=== PATIENT | male | born 1955 | race Caucasian/White ===

== ENCOUNTER 2016-07-05 18:59 | Emergency (ER) | payer OTHER ==
[~2016-07-05] VITALS: Ht 182.9 cm; Wt 125.9 kg
[~2016-07-05 18:59] MED LIST: ALPR0.25 PO; AMLO5TAB2 PO; APIX2.5T PO; ATOR40TA16 PO; CARV12.5 PO; CYCL5TAB PO; FURO1TAB60 PO; GABA300C5 PO; HYDR-3583 PO; HYDR50TA15 PO; LEVEMIR SQ; LISI-515 PO; MORP1TAB24 PO; NOVORP2 SQ; OMEP40CA2 PO
[2016-07-05 19:34] VITALS: PULSE 74; RESP 20; TEMP 98.4; O2SAT 95
[2016-07-05] MEDS ORDERED: SODIUM CHLORIDE 0.9% FLUSH 5 ML FLUSH IVF PRN (20:00)
--- NOTE | 2016-07-05 20:02 | PD ---
HPI . Lesion on his right foot Chief Complaint: Skin Problem Time Seen by Provider: 19:47 Travel History International Travel<30 days: No Contact w/Intl Traveler<30days: No Traveled to known affect area: No History of Present Illness HPI Patient presents with a blister on his right foot which burst today. He states that he just noticed it today. He states he feels like he swollen all over. It started yesterday. He is also complaining with some shortness of breath. He denies chest pain. He has not had any fever. No nausea or vomiting. PFSH Past Medical History Hx Anticoagulant Therapy: Yes Arthritis: Yes Asthma: No Autoimmune Disease: No Anxiety: Yes Depression: No Heart Rhythm Problems: No Cancer: No Cardiovascular Problems: Yes (CAD) High Cholesterol: Yes Chemotherapy: No Chest Pain: Yes Congestive Heart Failure: No COPD: No Cerebrovascular Accident: Yes Diabetes: Yes Diminished Hearing: No Endocrine: Yes Gastrointestinal Disorders: Yes GERD: Yes Genitourinary: Yes Headaches: Yes Hiatal Hernia: Yes Hypertension: Yes Immune Disorder: No Implanted Vascular Access Dvce: No Kidney Stones: No Musculoskeletal: Yes Neurologic: Yes Psychiatric: Yes Reproductive: No Respiratory: Yes Immunizations Current: Yes Migraines: Yes Myocardial Infarction: Yes Radiation Therapy: No Renal Failure: No Seizures: No Sickle Cell Disease: No Sleep Apnea: Yes Thyroid Disease: No Triglycerides - High: Yes Ulcer: No Past Surgical History Abdominal Surgery: No AICD: No Arteriovenous Shunt: No Cardiac Surgery: No Ear Surgery: No Endocrine Surgery: No Eye Surgery: No Genitourinary Surgery: No Gynecologic Surgery: No Hysterectomy: No Insulin Pump: No Joint Replacement: No Neurologic Surgery: No Oral Surgery: No Pacemaker: No Thoracic Surgery: No Other Surgery: Yes Social History Alcohol Use: Yes (wine occ) Tobacco Use: No (second hand smoke from caregiver) Substance Use: No Allergies-Medications (Allergen,Severity, Reaction): Coded Allergies: Penicillin (Verified Allergy, Severe, Hives, SOB, 07/05/16) *MDRO Multi-Drug Resistant Organism (Verified Adverse Reaction, Severe, 07/05/16) 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 Reported Meds & Prescriptions Reported Meds & Active Scripts Active Hydrocodone-Acetaminophen 10-325 mg Tab 1 Tab PO Q6H PRN Flexeril (Cyclobenzaprine HCl) 5 Mg Tab 5 Mg PO TID PRN Alprazolam 0.25 Mg Tab 0.25 Mg PO BID PRN Morphine ER (Morphine Sulfate) 15 Mg Tab 15 Mg PO BID Gabapentin 300 Mg Cap 300 Mg PO TID Reported Omeprazole 40 Mg Cap 40 Mg PO DAILY Eliquis (Apixaban) 2.5 Mg Tab 2.5 Mg PO BID Novolin R Inj (Insulin Human Regular) 1,000 Unit/10 Ml Vial 1-9 Units SQ ACHS Max dose at bedtime:( )units; sugars less than 70,(0) units; sugars 200-249,(3 )unit; sugars 250-299,(5)units; sugars 300-349,(7) units; sugars greater than 349,(9)units Levemir Inj (Insulin Detemir) 1,000 unit/ 10 ML Vial 62 Units SQ Q12HR Do not mix with any other Insulin. Atorvastatin (Atorvastatin Calcium) 40 Mg Tab 40 Mg PO HS Lasix (Furosemide) 40 Mg Tab 40 Mg PO BID PRN Hydralazine (Hydralazine HCl) 50 Mg Tab 50 Mg PO TID Take with a meal Coreg (Carvedilol) 12.5 Mg Tab 12.5 Mg PO Q12HR Lisinopril 20 Mg Tab 20 Mg PO Q12HR Amlodipine (Amlodipine Besylate) 5 Mg Tab 5 Mg PO DAILY Review of Systems Except as stated in HPI: all other systems reviewed are Neg General / Constitutional: No: Fever, Chills Cardiovascular: Positive: Edema Respiratory: Positive: Shortness of Breath Gastrointestinal: No: Nausea, Vomiting, Diarrhea Genitourinary: Positive: Decreased Urinary Output Skin: Positive Other (blister on his right foot) Psychiatric: Positive: Anxiety Endocrine: Positive: Other (elevated blood sugar), No: Polyuria, Polydipsia Physical Exam Narrative GENERAL: Patient is talking nonstop. He is very anxious about possibly having to have his right lower extremity amputated. SKIN: Warm and dry. He has a ruptured blister on the dorsal aspect of the right foot. HEAD: Atraumatic. Normocephalic. EYES: Pupils equal and round. ENT: No nasal bleeding or discharge. Mucous membranes pink and moist. NECK: Trachea midline. CARDIOVASCULAR: Regular rate and rhythm. Heart sounds are normal. RESPIRATORY: No accessory muscle use. Lungs are clear. GASTROINTESTINAL: Abdomen soft, non-tender, nondistended. He doesn't appear to have any abdominal wall edema. MUSCULOSKELETAL: No obvious deformities. 4+ pretibial pitting edema. NEUROLOGICAL: Awake and alert. No obvious cranial nerve deficits. Motor grossly within normal limits. Normal speech. PSYCHIATRIC: Appropriate mood and affect; insight and judgment normal. Data Data Last Documented VS Vital Signs Date Time Temp Pulse Resp B/P Pulse Ox O2 Delivery O2 Flow Rate FiO2 07/05/16 21:30 85 16 168/71 98 Nasal Cannula 2 07/05/16 19:34 98.4 Orders Complete Blood Count With Diff (07/05/16 19:51) Comprehensive Metabolic Panel (07/05/16 19:51) B-Type Natriuretic Peptide (07/05/16 19:51) Prothrombin Time / Inr (Pt) (07/05/16 19:51) Ckmb (Isoenzyme) Profile (07/05/16 19:51) Troponin I (07/05/16 19:51) Iv Access Insert/Monitor (07/05/16 19:51) Electrocardiogram (07/05/16 19:51) Ecg Monitoring (07/05/16 19:51) Oximetry (07/05/16 19:51) Chest, Single Ap (07/05/16 19:51) Sodium Chloride 0.9% Flush (Ns Flush) (07/05/16 20:00) Furosemide Inj (Lasix Inj) (07/05/16 21:45) CKMB (07/05/16 20:30) CKMB% (07/05/16 20:30) Labs Laboratory Tests Test 07/05/16 20:30 White Blood Count 9.7 TH/MM3 Red Blood Count 4.37 MIL/MM3 Hemoglobin 12.8 GM/DL Hematocrit 37.8 % Mean Corpuscular Volume 86.4 FL Mean Corpuscular Hemoglobin 29.2 PG Mean Corpuscular Hemoglobin 33.8 % Concent Red Cell Distribution Width 13.2 % Platelet Count 353 TH/MM3 Mean Platelet Volume 7.5 FL Neutrophils (%) (Auto) 72.3 % Lymphocytes (%) (Auto) 14.9 % Monocytes (%) (Auto) 6.5 % Eosinophils (%) (Auto) 3.7 % Basophils (%) (Auto) 2.6 % Neutrophils # (Auto) 6.9 TH/MM3 Lymphocytes # (Auto) 1.5 TH/MM3 Monocytes # (Auto) 0.6 TH/MM3 Eosinophils # (Auto) 0.4 TH/MM3 Basophils # (Auto) 0.3 TH/MM3 CBC Comment DIFF FINAL Differential Comment Prothrombin Time 10.0 SEC Prothromb Time International 0.9 RATIO Ratio Sodium Level 137 MEQ/L Potassium Level 4.5 MEQ/L Chloride Level 103 MEQ/L Carbon Dioxide Level 24.4 MEQ/L Anion Gap 10 MEQ/L Blood Urea Nitrogen 45 MG/DL Creatinine 1.80 MG/DL Estimat Glomerular Filtration 39 ML/MIN Rate Random Glucose 302 MG/DL Calcium Level 8.5 MG/DL Total Bilirubin 0.3 MG/DL Aspartate Amino Transf 21 U/L (AST/SGOT) Alanine Aminotransferase 24 U/L (ALT/SGPT) Alkaline Phosphatase 83 U/L Total Creatine Kinase 119 U/L Creatine Kinase MB 1.3 NG/ML Troponin I LESS THAN 0.02 NG/ML B-Type Natriuretic Peptide 37 PG/ML Total Protein 7.2 GM/DL Albumin 3.1 GM/DL MDM Medical Decision Making Medical Screen Exam Complete: Yes Emergency Medical Condition: Yes Interpretation(s) EKG shows a normal sinus rhythm with no ST segment elevation or depression. Differential Diagnosis Differential diagnosis of his foot blister includes but is not limited to CHF, cellulitis, osteomyelitis Narrative Course Patient presents for evaluation of a blister on his foot. He is concerned that he will have to have his foot amputated. He also reports diffuse swelling, shortness of breath and elevated blood sugars. 9:36 PM CBC has a white count of 9.7. H&H is 12.8 and 37.8. His BNP is 37. Many of his chemistries will be delayed because our analyzer is down. Chest x-ray is negative to the radiologist's interpretation. Chest x-ray was independently viewed by me. 10:04 PM The rest of his labs are back. Troponin is negative. CK-MB is negative. He has no evidence of acute exacerbation of CHF. He has no evidence of infection. He is stable for discharge to home. Diagnosis Primary Impression: Peripheral edema Additional Instructions: Increased your Lasix to 80 mg twice a day for the next 5 days. See your doctor later in the week for recheck. Wash your foot twice a day with soap and water and apply Neosporin ointment. Med/Other Pt SpecificInfo: Prescription(s) given Scripts Furosemide (Lasix)80 Mg Tab80 Mg PO BID 5 Days Ref 0 Prov:Amanda Valiente MD 07/05/16 Disposition: 01 DISCHARGE HOME Condition: Stable Amanda Valiente MD Jul 05, 2016 20:01
--- NOTE | 2016-07-05 20:27 | RADHPO ---
EXAM DATE/TIME: 07/05/2016 20:06 [facility] COMPARISON: CHEST SINGLE AP, June 04, 2016, 15:32. INDICATIONS : Short of breath MEDICAL HISTORY : Hypertension. Diabetes mellitus type II. Stroke. SURGICAL HISTORY : Left foot amputation ENCOUNTER: Initial ACUITY: 1 day PAIN SCORE: Non-responsive. LOCATION: Bilateral chest FINDINGS: A single view of the chest demonstrates the lungs to be symmetrically aerated without evidence of mas s, infiltrate or effusion. The cardiomediastinal contours are unremarkable. Osseous structures are intact. CONCLUSION: No evidence of acute cardiopulmonary disease. Josep Ward MD on July 05, 2016 at 20:25 Board Certified Radiologist. This report was verified electronically.
[2016-07-05 20:41] LABS: AUTOMATED NEUTROPHIL # 6.9 TH/MM3 (1.8-7.7); BASOPHIL # 0.3 TH/MM3 (0-0.2); BASOPHIL % 2.6 % (0.0-2.0); EOSINOPHIL # 0.4 TH/MM3 (0-0.4); EOSINOPHIL % 3.7 % (0.0-4.0); HEMATOCRIT 37.8 % (39.0-51.0); HEMO FLAGS DIFF FINAL; LYMPH % 14.9 % (9.0-44.0); LYMPHOCYTE # 1.5 TH/MM3 (1.0-4.8); MEAN CELL VOLUME 86.4 FL (80.0-100.0); MEAN CORPUSCULAR HEMOGLOBIN 29.2 PG (27.0-34.0); MEAN CORPUSCULAR HGB CONC 33.8 % (32.0-36.0); MONO % 6.5 % (0.0-8.0); NEUT % 72.3 % (16.0-70.0); PLATELET COUNT 353 TH/MM3 (150-450); RED BLOOD COUNT 4.37 MIL/MM3 (4.50-5.90); RED CELL DISTRIBUTION WIDTH 13.2 % (11.6-17.2); WHITE BLOOD COUNT 9.7 TH/MM3 (4.0-11.0)
[2016-07-05 20:50] LABS: BLOOD UREA NITROGEN 45 MG/DL (7-18); GLOMERULAR FILTRATION RATE 39 ML/MIN (>89); SODIUM (NA) 137 MEQ/L (136-145)
[2016-07-05 20:51] LABS: CHLORIDE 103 MEQ/L (98-107); POTASSIUM 4.5 MEQ/L (3.5-5.1)
[2016-07-05 20:52] LABS: INTERNATIONAL NORMALIZED RATIO 0.9 RATIO
[2016-07-05 21:30] VITALS: BP 168/71; PULSE 85; RESP 16; O2SAT 98
[2016-07-05 21:41] LABS: ALKALINE PHOSPHATASE 83 U/L (45-117); ALT (GPT) 24 U/L (12-78); ANION GAP 10 MEQ/L (5-15); AST (GOT) 21 U/L (15-37); BICARBONATE 24.4 MEQ/L (21.0-32.0); CREATINE KINASE 119 U/L (39-308); TOTAL BILIRUBIN ADULT 0.3 MG/DL (0.2-1.0)
[2016-07-05] MEDS ORDERED: FUROSEMIDE 100 MG/10 ML VIAL IV PUSH ONE (21:45)
[2016-07-05 21:54] LABS: CKMB 1.3 NG/ML (0.5-3.6)
[2016-07-05] MEDS ORDERED: FURO1TAB61 PO (22:07)
[2016-07-05 23:08] VITALS: BP 172/68
--- NOTE | 2016-07-06 23:51 | EKG ---
Date Performed: 07/05/2016 Time Performed: 20:16:40 PTAGE: 61 years EKG: Sinus rhythm Normal ECG PREVIOUS TRACING : 06/04/2016 14.58 DOCTOR: Eduardo Acosta Interpretating Date/Time 07/06/2016 23:45:21
[2016-07-16] MEDS ORDERED: HYDR-3583 PO (14:57)
[2016-07-16] MEDS ORDERED: ALPR0.25 PO (14:57)
[2016-07-16] MEDS ORDERED: MORP1TAB24 PO (14:57)
[2016-07-16] MEDS ORDERED: CYCL5TAB PO (14:57)
[2016-08-23] MEDS ORDERED: MORP1TAB24 PO (10:15)
[2016-08-23] MEDS ORDERED: ALPR0.25 PO (10:16)
[2016-08-23] MEDS ORDERED: GABA300C5 PO (10:16)
[2016-08-23] MEDS ORDERED: HYDR-3583 PO (10:16)
[2016-08-23] MEDS ORDERED: CYCL5TAB PO (10:22)
[2016-08-26] MEDS ORDERED: MUPI2OIN TOPICAL (12:55)
[2016-08-26] MEDS ORDERED: RANI150T PO (15:49)
[2016-08-26] MEDS ORDERED: LEVEMIR SQ (15:55)
[2016-08-30] MEDS ORDERED: AMLO5TAB2 PO (09:09)
[2016-08-30] MEDS ORDERED: ALBUAER3 INH (09:09)
[2016-09-09] MEDS ORDERED: LEVEMIR SQ (14:05)
[2016-09-09] MEDS ORDERED: OMEP20TA PO (14:06)
[2016-09-09] MEDS ORDERED: INSU-170 (14:25)
[2016-09-17] MEDS ORDERED: APIX2.5T PO (13:46)
[2016-09-20] MEDS ORDERED: APIX2.5T PO (13:33)
[2016-09-27] MEDS ORDERED: NOVORP2 SQ (13:14)
[2016-10-07] MEDS ORDERED: OMEP20TA PO (14:10)
[2016-10-08] MEDS ORDERED: MORP1TAB24 PO (15:14)
[2016-10-08] MEDS ORDERED: ALPR0.25 PO (15:14)
[2016-10-08] MEDS ORDERED: HYDR-3583 PO (15:14)
[2016-10-08] MEDS ORDERED: CYCL5TAB PO (15:15)
[2016-10-18] MEDS ORDERED: LIPI40TA PO (14:47)
[2016-10-28] MEDS ORDERED: ALBUAER3 INH (15:17)
[2016-11-01] MEDS ORDERED: NOVORP2 SQ (12:42)
[2016-11-02] MEDS ORDERED: GLUC1TES75 (15:17)
[2016-11-03] MEDS ORDERED: GLUC1TES75 (10:43)
[2016-11-04] MEDS ORDERED: CARV12.5 PO (16:54)
[2016-11-05] MEDS ORDERED: ALPR0.25 PO (10:40)
[2016-11-05] MEDS ORDERED: MORP1TAB24 PO (10:40)
[2016-11-05] MEDS ORDERED: HYDR-3583 PO (10:40)
[2016-11-19] MEDS ORDERED: LEVEMIR SQ (14:01)
[2016-11-26] MEDS ORDERED: NOVORP2 SQ (14:48)
[2016-11-26] MEDS ORDERED: LIPI40TA PO (14:50)
[2016-12-10] MEDS ORDERED: HYDR-3583 PO (15:00)
[2016-12-10] MEDS ORDERED: MORP1TAB24 PO (15:00)
[2016-12-10] MEDS ORDERED: ALPR0.25 PO (15:00)
== END 2016-07-05 23:18 | disposition home or self-care (01) ==
LOC: PHED 18:59
DX: R60.0 Localized edema (principal); R06.02 Shortness of breath
CPT/HCPCS: 71010; 80053; 82550; 82552; 83880; 84484; 85025; 85610; 93005; 96374; 99284; J1940

== ENCOUNTER 2016-07-30 14:00 | Emergency (ER) | payer OTHER ==
[~2016-07-30] VITALS: Ht 177.8 cm; Wt 109.0 kg
[~2016-07-30 14:00] MED LIST changes: +FURO1TAB61 PO
[2016-07-30 14:19] VITALS: BP 151/84; PULSE 67; RESP 17; TEMP 98.6; O2SAT 96
[2016-07-30] MEDS ORDERED: ACETAMINOPHEN/HYDROcodone 325 MG/5 MG TAB PO ONE (15:30)
[2016-07-30] MEDS ORDERED: cloNIDine HCL 0.2 MG TAB PO ONE (15:30)
--- NOTE | 2016-07-30 15:32 | PD ---
HPI Chief Complaint: Hypertension Time Seen by Provider: 15:13 Travel History International Travel<30 days: No Contact w/Intl Traveler<30days: No Traveled to known affect area: No History of Present Illness HPI This patient went to physical therapy and they checked his blood pressure and it was 190s systolic and they sent him to the emergency room and wouldn't do therapy with that blood pressure. Pressure is currently in the 180s systolic. He complains of posterior headache. No head injury or fever. No thunderclap onset. He does take blood thinner. Symptoms severity is moderate. No alleviating factors. Duration one day PFSH Past Medical History Hx Anticoagulant Therapy: Yes Arthritis: Yes Asthma: No Autoimmune Disease: No Anxiety: Yes Depression: No Heart Rhythm Problems: No Cancer: No Cardiovascular Problems: Yes (CAD) High Cholesterol: Yes Chemotherapy: No Chest Pain: Yes Congestive Heart Failure: No COPD: No Cerebrovascular Accident: Yes Diabetes: Yes Patient Takes Glucophage: No Diminished Hearing: No Endocrine: Yes Gastrointestinal Disorders: Yes GERD: Yes Genitourinary: Yes Headaches: Yes Hiatal Hernia: Yes Heparin Induced Thrombocytopen: No Hypertension: Yes Immune Disorder: No Implanted Vascular Access Dvce: No Kidney Stones: No Musculoskeletal: Yes Neurologic: Yes Psychiatric: Yes Reproductive: No Respiratory: Yes Immunizations Current: Yes Migraines: Yes Myocardial Infarction: Yes Radiation Therapy: No Renal Failure: No Seizures: No Sickle Cell Disease: No Sleep Apnea: Yes Thyroid Disease: No Triglycerides - High: Yes Ulcer: No Past Surgical History Abdominal Surgery: No AICD: No Arteriovenous Shunt: No Cardiac Surgery: No Ear Surgery: No Endocrine Surgery: No Eye Surgery: No Genitourinary Surgery: No Gynecologic Surgery: No Hysterectomy: No Insulin Pump: No Joint Replacement: No Neurologic Surgery: No Oral Surgery: No Pacemaker: No Thoracic Surgery: No Other Surgery: Yes (Orthopedic) Social History Alcohol Use: Yes (wine occ) Tobacco Use: No (second hand smoke from caregiver) Substance Use: No Allergies-Medications (Allergen,Severity, Reaction): Coded Allergies: Penicillin (Verified Allergy, Severe, Hives, SOB, 07/30/16) *MDRO Multi-Drug Resistant Organism (Verified Adverse Reaction, Severe, ) 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 Reported Meds & Prescriptions Reported Meds & Active Scripts Active Hydrocodone-Acetaminophen 10-325 mg Tab 1 Tab PO Q6H PRN Flexeril (Cyclobenzaprine HCl) 5 Mg Tab 5 Mg PO TID PRN Alprazolam 0.25 Mg Tab 0.25 Mg PO BID PRN Morphine ER (Morphine Sulfate) 15 Mg Tab 15 Mg PO BID Gabapentin 300 Mg Cap 300 Mg PO TID Reported Omeprazole 40 Mg Cap 40 Mg PO DAILY Eliquis (Apixaban) 2.5 Mg Tab 2.5 Mg PO BID Novolin R Inj (Insulin Human Regular) 1,000 Unit/10 Ml Vial 1-9 Units SQ ACHS Max dose at bedtime:( )units; sugars less than 70,(0) units; sugars 200-249,(3 )unit; sugars 250-299,(5)units; sugars 300-349,(7) units; sugars greater than 349,(9)units Levemir Inj (Insulin Detemir) 1,000 unit/ 10 ML Vial 62 Units SQ Q12HR Do not mix with any other Insulin. Atorvastatin (Atorvastatin Calcium) 40 Mg Tab 40 Mg PO HS Lasix (Furosemide) 40 Mg Tab 40 Mg PO BID PRN Hydralazine (Hydralazine HCl) 50 Mg Tab 50 Mg PO TID Take with a meal Coreg (Carvedilol) 12.5 Mg Tab 12.5 Mg PO Q12HR Lisinopril 20 Mg Tab 20 Mg PO Q12HR Amlodipine (Amlodipine Besylate) 5 Mg Tab 5 Mg PO DAILY Review of Systems General / Constitutional: No: Fever Eyes: No: Visual changes HENT: Positive: Headaches Cardiovascular: No: Chest Pain or Discomfort Respiratory: No: Shortness of Breath Gastrointestinal: No: Abdominal Pain Genitourinary: No: Dysuria Musculoskeletal: No: Pain Skin: No Rash Neurologic: Positive: Headache, No: Weakness Psychiatric: No: Depression Endocrine: No: Polydipsia Hematologic/Lymphatic: No: Easy Bruising Physical Exam Narrative GENERAL: Well-nourished, well-developed patient in no apparent distress. SKIN: Warm and dry. HEAD: Atraumatic. Normocephalic. EYES: Pupils equal and round. No scleral icterus. No injection or drainage. ENT: No nasal bleeding or discharge. Mucous membranes pink and moist. NECK: Trachea midline. No JVD. No meningeal signs CARDIOVASCULAR: Regular rate and rhythm. No murmur appreciated. RESPIRATORY: No accessory muscle use. Clear to auscultation. Breath sounds equal bilaterally. GASTROINTESTINAL: Abdomen soft, non-tender, nondistended. Hepatic and splenic margins not palpable. MUSCULOSKELETAL: Has had amputation of his left leg. No clubbing. No cyanosis. Has edema of the right foot and ankle and lower leg. This is chronic per patient. He is on diuretic. He also has a chronic healing wound on the dorsum of the foot. It is scabbed over and does not appear infected. NEUROLOGICAL: Awake and alert. No obvious cranial nerve deficits. Motor grossly within normal limits. Normal speech. PSYCHIATRIC: Appropriate mood and affect; insight and judgment normal. Data Data Last Documented VS Vital Signs Date Time Temp Pulse Resp B/P Pulse Ox O2 Delivery O2 Flow Rate FiO2 07/30/16 14:19 98.6 67 17 151/84 96 Orders Acetamin-Hydrocod 325-5 Mg ([place] 5-325 (07/30/16 15:30) Clonidine (Catapres) (07/30/16 15:30) Ct Brain W/O Iv Contrast(Rout) (07/30/16 ) [facility] Medical Decision Making Medical Screen Exam Complete: Yes Emergency Medical Condition: Yes Medical Record Reviewed: Yes Differential Diagnosis Hypertensive urgency, intracranial hemorrhage, accelerated hypertension Narrative Course I have reviewed the patient's electronic medical record. Patient is neurologically at baseline I've ordered a brain CT to rule out intracranial hemorrhage Presentation does not seem consistent with subarachnoid hemorrhage or meningitis. I gave him a dose of clonidine and will reassess his blood pressure. I gave him 2 pain pills. He does have chronic pain and takes narcotics including morphine. He ran out of his medications and has not been on any blood pressure medication until 2 days ago when he restarted things. Repeat blood pressure is 140/[address] is negative Stable for outpatient follow-up Diagnosis Primary Impression: Accelerated hypertension Additional Impressions: Headache Qualified Code: G44.209 - Acute non intractable tension-type headache Anticoagulation adequate with anticoagulant therapy Additional Instructions: The patient was advised to follow up with their physician and return if they worsen. Check and record blood pressure daily Med/Other Pt SpecificInfo: Other Disposition: 01 DISCHARGE HOME Condition: Stable Capo Gunderson MD Jul 30, 2016 15:32
--- NOTE | 2016-07-30 16:51 | RADHPO ---
EXAM DATE/TIME: 07/30/2016 15:57 [facility] COMPARISON: CT BRAIN W/O CONTRAST, June 04, 2016, 16:16. INDICATIONS : Headache. RADIATION DOSE: 63.12 CTDIvol (mGy) MEDICAL HISTORY : Myocardial infarction. Hypertension. Diabetes. SURGICAL HISTORY : None. ENCOUNTER: Initial ACUITY: 1 day PAIN SCALE: 6/10 LOCATION: cranial TECHNIQUE: Multiple contiguous axial images were obtained of the head. Using automated exposure control and adj ustment of the mA and/or kV according to patient size, radiation dose was kept as low as reasonably a chievable to obtain optimal diagnostic quality images. FINDINGS: CEREBRUM: The ventricles are normal for age. No evidence of midline shift, mass lesion, hemorrhage or acute in farction. There is a punctate, old lacunar infarct in the caudate nucleus on the left. This is unchan ged when compared to previous dated 06/04/16. No extra-axial fluid collections are seen. POSTERIOR FOSSA: The cerebellum and brainstem are intact. The 4th ventricle is midline. The cerebellopontine angle i s unremarkable. EXTRACRANIAL: The visualized portion of the orbits is intact. SKULL: The calvaria is intact. No evidence of skull fracture. CONCLUSION: 1. No acute intracranial abnormality. 2. Stable, old lacunar infarct in the left caudate nucleus. Lui Smyth MD on July 30, 2016 at 16:48 Board Certified Radiologist. This report was verified electronically.
[2016-07-30 16:58] VITALS: BP 140/71; PULSE 56; RESP 18; O2SAT 98
[2016-08-23] MEDS ORDERED: MORP1TAB24 PO (10:15)
[2016-08-23] MEDS ORDERED: ALPR0.25 PO (10:16)
[2016-08-23] MEDS ORDERED: GABA300C5 PO (10:16)
[2016-08-23] MEDS ORDERED: HYDR-3583 PO (10:16)
[2016-08-23] MEDS ORDERED: CYCL5TAB PO (10:22)
[2016-08-26] MEDS ORDERED: MUPI2OIN TOPICAL (12:55)
[2016-08-26] MEDS ORDERED: RANI150T PO (15:49)
[2016-08-26] MEDS ORDERED: LEVEMIR SQ (15:55)
[2016-08-30] MEDS ORDERED: AMLO5TAB2 PO (09:09)
[2016-08-30] MEDS ORDERED: ALBUAER3 INH (09:09)
[2016-09-09] MEDS ORDERED: LEVEMIR SQ (14:05)
[2016-09-09] MEDS ORDERED: OMEP20TA PO (14:06)
[2016-09-09] MEDS ORDERED: INSU-170 (14:25)
[2016-09-17] MEDS ORDERED: APIX2.5T PO (13:46)
[2016-09-20] MEDS ORDERED: APIX2.5T PO (13:33)
[2016-09-27] MEDS ORDERED: NOVORP2 SQ (13:14)
[2016-10-07] MEDS ORDERED: OMEP20TA PO (14:10)
[2016-10-08] MEDS ORDERED: HYDR-3583 PO (15:14)
[2016-10-08] MEDS ORDERED: ALPR0.25 PO (15:14)
[2016-10-08] MEDS ORDERED: MORP1TAB24 PO (15:14)
[2016-10-08] MEDS ORDERED: CYCL5TAB PO (15:15)
[2016-10-18] MEDS ORDERED: LIPI40TA PO (14:47)
[2016-10-28] MEDS ORDERED: ALBUAER3 INH (15:17)
[2016-11-01] MEDS ORDERED: NOVORP2 SQ (12:42)
[2016-11-02] MEDS ORDERED: GLUC1TES75 (15:17)
[2016-11-03] MEDS ORDERED: GLUC1TES75 (10:43)
[2016-11-04] MEDS ORDERED: CARV12.5 PO (16:54)
[2016-11-05] MEDS ORDERED: ALPR0.25 PO (10:40)
[2016-11-05] MEDS ORDERED: HYDR-3583 PO (10:40)
[2016-11-05] MEDS ORDERED: MORP1TAB24 PO (10:40)
[2016-11-19] MEDS ORDERED: LEVEMIR SQ (14:01)
[2016-11-26] MEDS ORDERED: NOVORP2 SQ (14:48)
[2016-11-26] MEDS ORDERED: LIPI40TA PO (14:50)
[2016-12-10] MEDS ORDERED: HYDR-3583 PO (15:00)
[2016-12-10] MEDS ORDERED: ALPR0.25 PO (15:00)
[2016-12-10] MEDS ORDERED: MORP1TAB24 PO (15:00)
== END 2016-07-30 17:11 | disposition home or self-care (01) ==
LOC: PHED 14:00
DX: I10 Essential (primary) hypertension (principal); G44.209 Tension-type headache, unspecified, not intractable; Z77.22 Contact with and (suspected) exposure to environmental tobacco smoke (acute) (chronic)
CPT/HCPCS: 70450

== ENCOUNTER 2016-08-17 15:40 | Observation (INO) | payer OTHER ==
[~2016-08-17] VITALS: Ht 182.9 cm; Wt 125.0 kg
[~2016-08-17 15:40] MED LIST changes: -FURO1TAB61 PO
[2016-08-17 15:49] VITALS: BP 154/80; PULSE 71; RESP 18; TEMP 98.1; O2SAT 98
[2016-08-17] MEDS ORDERED: SODIUM CHLOR 0.9% 1000 ML INJ 1,000 ML IV ONE ×2 (17:19→17:49)
[2016-08-17 17:29] VITALS: BP 142/73; PULSE 71; RESP 18
--- NOTE | 2016-08-17 17:29 | PD ---
HPI . Right foot wound Chief Complaint: Diabetic Time Seen by Provider: 17:09 Travel History International Travel<30 days: No Contact w/Intl Traveler<30days: No Traveled to known affect area: No History of Present Illness HPI The patient presents with a multitude of complaints. The chief complaint seems to be a wound on the right foot. He is also complaining with hypertension and hyperglycemia. He is complaining with constipation. He is complaining with peripheral edema. Patient reports that he does not have a primary care doctor. He states that he has a doctor that comes to his house. He states that he was seen in his home today and was instructed to come here for further evaluation of the above problems. PFSH Past Medical History Hx Anticoagulant Therapy: Yes Arthritis: Yes Asthma: No Autoimmune Disease: No Anxiety: Yes Depression: No Heart Rhythm Problems: No Cancer: No Cardiovascular Problems: Yes High Cholesterol: Yes Chemotherapy: No Chest Pain: Yes Congestive Heart Failure: No COPD: No Cerebrovascular Accident: Yes Diabetes: Yes Patient Takes Glucophage: No Diminished Hearing: No Endocrine: Yes Gastrointestinal Disorders: Yes GERD: Yes Genitourinary: Yes Headaches: Yes Hiatal Hernia: Yes Heparin Induced Thrombocytopen: No Hypertension: Yes Immune Disorder: No Implanted Vascular Access Dvce: No Kidney Stones: No Musculoskeletal: Yes Neurologic: Yes Psychiatric: Yes Reproductive: No Respiratory: Yes Immunizations Current: Yes Migraines: Yes Myocardial Infarction: Yes Radiation Therapy: No Renal Failure: No Seizures: No Sickle Cell Disease: No Sleep Apnea: Yes Thyroid Disease: No Triglycerides - High: Yes Ulcer: No Influenza Vaccination: Yes ?: Not Past Surgical History Abdominal Surgery: No AICD: No Arteriovenous Shunt: No Cardiac Surgery: No Ear Surgery: No Endocrine Surgery: No Eye Surgery: No Genitourinary Surgery: No Gynecologic Surgery: No Hysterectomy: No Insulin Pump: No Joint Replacement: No Neurologic Surgery: No Oral Surgery: No Pacemaker: No Thoracic Surgery: No Other Surgery: Yes (Orthopedic) Social History Alcohol Use: Yes (wine occ) Tobacco Use: No (second hand smoke from caregiver) Substance Use: No Allergies-Medications (Allergen,Severity, Reaction): Coded Allergies: Penicillin (Verified Allergy, Severe, Hives, SOB, 08/17/16) *MDRO Multi-Drug Resistant Organism (Verified Adverse Reaction, Severe, ) 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 Reported Meds & Prescriptions Reported Meds & Active Scripts Active Hydrocodone-Acetaminophen 10-325 mg Tab 1 Tab PO Q6H PRN Flexeril (Cyclobenzaprine HCl) 5 Mg Tab 5 Mg PO TID PRN Alprazolam 0.25 Mg Tab 0.25 Mg PO BID PRN Morphine ER (Morphine Sulfate) 15 Mg Tab 15 Mg PO BID Gabapentin 300 Mg Cap 300 Mg PO TID Reported Omeprazole 40 Mg Cap 40 Mg PO DAILY Eliquis (Apixaban) 2.5 Mg Tab 2.5 Mg PO BID Novolin R Inj (Insulin Human Regular) 1,000 Unit/10 Ml Vial 1-9 Units SQ ACHS Max dose at bedtime:( )units; sugars less than 70,(0) units; sugars 200-249,(3 )unit; sugars 250-299,(5)units; sugars 300-349,(7) units; sugars greater than 349,(9)units Levemir Inj (Insulin Detemir) 1,000 unit/ 10 ML Vial 62 Units SQ Q12HR Do not mix with any other Insulin. Atorvastatin (Atorvastatin Calcium) 40 Mg Tab 40 Mg PO HS Lasix (Furosemide) 40 Mg Tab 40 Mg PO BID PRN Hydralazine (Hydralazine HCl) 50 Mg Tab 50 Mg PO TID Take with a meal Coreg (Carvedilol) 12.5 Mg Tab 12.5 Mg PO Q12HR Lisinopril 20 Mg Tab 20 Mg PO Q12HR Amlodipine (Amlodipine Besylate) 5 Mg Tab 5 Mg PO DAILY Review of Systems Except as stated in HPI: all other systems reviewed are Neg General / Constitutional: No: Fever, Chills Cardiovascular: Positive: Other (elevated blood pressure) Gastrointestinal: Positive: Constipation, Other (including) Musculoskeletal: Positive: Edema Skin: Positive Lesions Endocrine: Positive: Other (elevated blood sugar) Physical Exam Narrative GENERAL: The patient is talking nonstop during the exam without any apparent respiratory distress. SKIN: Warm and dry. He is To lesions on his right lower extremity. One is on the dorsal aspect of the foot and the other is on the lateral aspect of the ankle. Both have a purulent-appearing eschar but the surrounding skin is not red or hot. HEAD: Atraumatic. Normocephalic. EYES: Pupils equal and round. ENT: No nasal bleeding or discharge. Mucous membranes pink and moist. NECK: Trachea midline. CARDIOVASCULAR: Regular rate and rhythm. Heart sounds are normal. RESPIRATORY: No accessory muscle use. Lungs are clear with full air movement throughout. GASTROINTESTINAL: Abdomen soft, non-tender. Distended.. MUSCULOSKELETAL: No obvious deformities. Previous left lower extremity amputation. I didn't really notice if it was AKA her BKA. He has 3+ pretibial pitting edema right lower extremity. NEUROLOGICAL: Awake and alert. No obvious cranial nerve deficits. Motor grossly within normal limits. Normal speech. PSYCHIATRIC: Appropriate mood and affect; insight and judgment normal. Data Data Last Documented VS Vital Signs Date Time Temp Pulse Resp B/P Pulse Ox O2 Delivery O2 Flow Rate FiO2 08/17/16 18:35 70 18 176/79 97 Room Air 08/17/16 17:29 96 08/17/16 15:49 98.1 Orders Electrocardiogram (08/17/16 17:19) Complete Blood Count With Diff (08/17/16 17:19) Comprehensive Metabolic Panel (08/17/16 17:19) Beta Hydroxybutyrate (Acetone) (08/17/16 17:19) Lactic Acid (08/17/16 17:19) Urinalysis - C+S If Indicated (08/17/16 17:19) Chest, Single Ap (08/17/16 17:19) Blood Glucose (08/17/16 17:19) Blood Glucose (08/17/16 18:19) Ecg Monitoring (08/17/16 17:19) Iv Access Insert/Monitor (08/17/16 17:19) Oximetry (08/17/16 17:19) NPO (08/17/16 17:19) Sodium Chlor 0.9% 1000 Ml Inj (Ns 1000 M (08/17/16 17:19) Sodium Chlor 0.9% 1000 Ml Inj (Ns 1000 M (08/17/16 17:49) Sodium Chloride 0.9% Flush (Ns Flush) (08/17/16 17:30) Foot, Complete ([id number]) (08/17/16 17:19) Wound Culture And Gram Stain (08/17/16 17:19) Abdomen, Flat & Upright (08/17/16 17:23) Cefazolin 2 Gm Premix (Ancef 2 Gm Premix (08/17/16 19:30) Labs Laboratory Tests Test 08/17/16 08/17/16 17:45 19:00 White Blood Count 8.2 TH/MM3 Red Blood Count 4.27 MIL/MM3 Hemoglobin 12.5 GM/DL Hematocrit 36.8 % Mean Corpuscular Volume 86.1 FL Mean Corpuscular Hemoglobin 29.3 PG Mean Corpuscular Hemoglobin 34.1 % Concent Red Cell Distribution Width 12.5 % Platelet Count 323 TH/MM3 Mean Platelet Volume 7.8 FL Neutrophils (%) (Auto) 66.1 % Lymphocytes (%) (Auto) 19.4 % Monocytes (%) (Auto) 8.6 % Eosinophils (%) (Auto) 3.6 % Basophils (%) (Auto) 2.3 % Neutrophils # (Auto) 5.4 TH/MM3 Lymphocytes # (Auto) 1.6 TH/MM3 Monocytes # (Auto) 0.7 TH/MM3 Eosinophils # (Auto) 0.3 TH/MM3 Basophils # (Auto) 0.2 TH/MM3 CBC Comment DIFF FINAL Differential Comment Sodium Level 134 MEQ/L Potassium Level 5.3 MEQ/L Chloride Level 101 MEQ/L Carbon Dioxide Level 24.3 MEQ/L Anion Gap 9 MEQ/L Blood Urea Nitrogen 52 MG/DL Creatinine 2.00 MG/DL Estimat Glomerular Filtration 34 ML/MIN Rate Random Glucose 455 MG/DL Lactic Acid Level 1.9 mmol/L Calcium Level 8.8 MG/DL Total Bilirubin 0.3 MG/DL Aspartate Amino Transf 17 U/L (AST/SGOT) Alanine Aminotransferase 17 U/L (ALT/SGPT) Alkaline Phosphatase 82 U/L Total Protein 7.2 GM/DL Albumin 3.2 GM/DL B-Hydroxybutyrate 0.11 MMOL/L Urine Color YELLOW Urine Turbidity CLEAR Urine pH 6.[address] 1.014 Urine Protein 100 mg/dL Urine Glucose (UA) 1000 OR GREATER mg/dL Urine Ketones NEG mg/dL Urine Occult Blood NEG Urine Nitrite NEG Urine Bilirubin NEG Urine Leukocyte Esterase NEG Urine Squamous Epithelial 0-5 /hpf Cells Urine Hyaline Casts 3-5 /lpf Urine Mucus OCC /lpf Microscopic Urinalysis Comment CULT NOT INDICATED MDM Medical Decision Making Medical Screen Exam Complete: Yes Emergency Medical Condition: Yes Medical Record Reviewed: Yes (patient has been seen here a couple times in the recent past for similar issues.) Interpretation(s) EKG shows a normal sinus rhythm with no ST segment elevation or depression. Differential Diagnosis Differential diagnosis of hyperglycemia includes but is not limited to dietary indiscretion, medication noncompliance, infection, [place] Narrative Course Patient presents for several problems. He reportedly was hypertensive at home but his blood pressure here was unremarkable. He is hyperglycemic. He does not smell of ketones. He has a wound on his right foot but it does not look like cellulitis. He does have peripheral edema. And he has a bloated abdomen consistent with his report of constipation. CBC & BMP Diagram 08/17/16 17:[address] Phys[address] Communication Dr. Sellers will place in obs to treat the elevated sugar and to initiate treatment of the foot ulcers. Diagnosis Primary Impression: Hyperglycemia Additional Impressions: Foot ulcer, right Qualified Code: L97.511 - Foot ulcer, right, limited to breakdown of skin Constipation Qualified Code: K59.00 - Constipation, unspecified constipation type Peripheral edema Admitting Information Admitting Physician Requests: Observation Med/Other Pt SpecificInfo: Prescription(s) given Condition: Amanda Davis MD Aug 17, 2016 17:29
[2016-08-17] MEDS ORDERED: SODIUM CHLORIDE 0.9% FLUSH 5 ML FLUSH IVF PRN (17:30)
[2016-08-17 17:55] LABS: AUTOMATED NEUTROPHIL # 5.4 TH/MM3 (1.8-7.7); BASOPHIL # 0.2 TH/MM3 (0-0.2); BASOPHIL % 2.3 % (0.0-2.0); EOSINOPHIL # 0.3 TH/MM3 (0-0.4); EOSINOPHIL % 3.6 % (0.0-4.0); HEMATOCRIT 36.8 % (39.0-51.0); HEMO FLAGS DIFF FINAL; LYMPH % 19.4 % (9.0-44.0); LYMPHOCYTE # 1.6 TH/MM3 (1.0-4.8); MEAN CELL VOLUME 86.1 FL (80.0-100.0); MEAN CORPUSCULAR HEMOGLOBIN 29.3 PG (27.0-34.0); MEAN CORPUSCULAR HGB CONC 34.1 % (32.0-36.0); MONO % 8.6 % (0.0-8.0); NEUT % 66.1 % (16.0-70.0); PLATELET COUNT 323 TH/MM3 (150-450); RED BLOOD COUNT 4.27 MIL/MM3 (4.50-5.90); RED CELL DISTRIBUTION WIDTH 12.5 % (11.6-17.2); WHITE BLOOD COUNT 8.2 TH/MM3 (4.0-11.0)
[2016-08-17 18:08] LABS: CHLORIDE 101 MEQ/L (98-107); POTASSIUM 5.3 MEQ/L (3.5-5.1); SODIUM (NA) 134 MEQ/L (136-145)
[2016-08-17 18:12] LABS: ANION GAP 9 MEQ/L (5-15); BICARBONATE 24.3 MEQ/L (21.0-32.0)
[2016-08-17 18:35] VITALS: BP 176/79; PULSE 70; RESP 18; O2SAT 97
--- NOTE | 2016-08-17 18:49 | RADHPO ---
EXAM DATE/TIME: 08/17/2016 17:47 [facility] COMPARISON: CHEST SINGLE AP, July 05, 2016, 20:06. INDICATIONS : Short of breath and cough for a few weeks. MEDICAL HISTORY : Hypertension. Hypercholesterolemia. Myocardial infarction. Cardio vascular disease. Hyperlipidem ia. GERD. Hiatal hernia. Diabetes. Arthritis. Osteoarthritis. SURGICAL HISTORY : Orthopedic surgeries: Left lower leg amputation, Right shoulder, Right knee, Right hand. ENCOUNTER: Initial ACUITY: 2 weeks PAIN SCORE: 3/10 LOCATION: Bilateral chest FINDINGS: The heart size is normal. There is some minimal linear density identified at the left base. The rig ht lung is clear. No effusion is seen. CONCLUSION: Suspected minimal atelectasis at the left lung base. Josep Pino MD on August 17, 2016 at 18:40 Board Certified Radiologist. This report was verified electronically.
[2016-08-17 18:54] LABS: ALKALINE PHOSPHATASE 82 U/L (45-117); ALT (GPT) 17 U/L (12-78); AST (GOT) 17 U/L (15-37); BETA-HYDROXYBUTYRATE 0.11 MMOL/L (0.00-0.39); BLOOD UREA NITROGEN 52 MG/DL (7-18); GLOMERULAR FILTRATION RATE 34 ML/MIN (>89); TOTAL BILIRUBIN ADULT 0.3 MG/DL (0.2-1.0)
--- NOTE | 2016-08-17 18:58 | RADHPO ---
EXAM DATE/TIME: 08/17/2016 17:49 [facility] COMPARISON: No previous studies available for comparison. INDICATIONS : Constipation for two weeks. MEDICAL HISTORY : Hypertension. Myocardial infarction. Hypercholesterolemia. Cardio vascular disease. Hyperlipidemia. GERD. Hiatal hernia. Diabetes. Arthritis. Osteoarthritis. SURGICAL HISTORY : Orthopedic surgeries: Left lower leg amputation, Right shoulder, Right knee, R ight hand ENCOUNTER: Initial ACUITY: 2 weeks PAIN SCORE: 5/10 LOCATION: Abdomen, all quadrants. FINDINGS: Air is seen within nondistended segments of the descending and sigmoid portions of the colon. There is a moderate amount of stool seen in the transverse portion of the colon. There is lehman zy density to the upper abdomen on several images which is likely secondary to body habitus. The oth er images appear better exposed. There is some degenerative change in the lumbar spine. CONCLUSION: Moderate amount of stool in the transverse colon. Josep Pino MD on August 17, 2016 at 18:42 Board Certified Radiologist. This report was verified electronically.
--- NOTE | 2016-08-17 19:00 | RADHPO ---
EXAM DATE/TIME: 08/17/2016 18:00 [facility] COMPARISON: No previous studies available for comparison. INDICATIONS : Right plantar foot wound for two weeks. MEDICAL HISTORY : Hypertension. Myocardial infarction. Hypercholesterolemia. Cardio vascular disease. Hyperlipidemia. GERD. Hiatal hernia. Diabetes. Arthritis. Osteoarthritis. SURGICAL HISTORY : Orthopedic surgeries: Left lower leg amputation, Right shoulder, Right knee, R ight hand ENCOUNTER: Initial ACUITY: 2 weeks PAIN SCORE: 3/10 LOCATION: Right plantar foot. FINDINGS: No fracture is seen. No areas of bony destruction are seen. The patient does appear t o have prominent soft-tissue swelling at the dorsal aspect of the foot. There is also soft-tissue sw elling at the ankle. There is a calcaneal spur at the plantar aponeurosis attachment site. There is a lesser degree of hypertrophic change at the Achilles attachment site at the posterior calcaneus. Va scular calcifications are seen. CONCLUSION: 1. Very prominent soft-tissue swelling. 2. Calcaneal spurs. Josep Pino MD on August 17, 2016 at 18:47 Board Certified Radiologist. This report was verified electronically.
[2016-08-17 19:20] LABS: BLOOD, URINE NEG (NEG); KETONE, URINE NEG (NEG); NITRITE,URINE NEG (NEG)
[2016-08-17 19:27] LABS: GLUCOSE,URINE 1000 OR GREATER mg/dL (NEG)
[2016-08-17 19:28] LABS: URINE COLOR YELLOW (YELLW/STRAW)
[2016-08-17 19:29] LABS: MUCUS URINE OCC /lpf (OCC)
[2016-08-17 19:30] LABS: COMMENT (UR) CULT NOT INDICATED; CULTURE IF INDICATED CULT NOT INDICATED; SQUAMOUS EPITHELIAL CELL URINE 0-5 /hpf (0-5)
[2016-08-17] MEDS ORDERED: ceFAZolin 2 GM PREMIX 50 ML IV ONE (19:30)
[2016-08-17] MEDS ORDERED: DEXTROSE 50% IN WATER 50 ML VIAL(D50) IV PUSH PRN (20:00)
[2016-08-17] MEDS ORDERED: NALOXONE HCL 0.4 MG/ML AMP IV PRN (20:00)
[2016-08-17] MEDS ORDERED: GLUCAGON 1 MG/ML VIAL OTHER PRN (20:00)
[2016-08-17] MEDS ORDERED: SODIUM CHLORIDE 0.9% FLUSH 5 ML FLUSH FLUSH PRN (20:00)
[2016-08-17 20:15] VITALS: BP 178/87; PULSE 62; RESP 18; O2SAT 94
[2016-08-17] MEDS ORDERED: LEVOFLOXACIN 750 MG PREMIX INJ 150 ML IV SCH (21:00)
[2016-08-17] MEDS: INSULIN ASPART SUPPLEMENTAL SCALE SQ SCH (21:13)
[2016-08-17] MEDS: SODIUM CHLORIDE 0.9% FLUSH 5 ML FLUSH FLUSH SCH (21:15)
[2016-08-17 22:35] VITALS: BP 144/68; PULSE 69; RESP 18; O2SAT 96
[2016-08-18] VITALS (7 sets, daily range): BP systolic 139–174; BP diastolic 69–90; PULSE 68–80; RESP 17–19; TEMP 98–98.7; O2SAT 92–99
[2016-08-18] MEDS: MORPHINE SULFATE 4 MG/ML INJ IV PUSH PRN ×3 (01:15→08:58)
[2016-08-18 07:25] LABS: AUTOMATED NEUTROPHIL # 6.6 TH/MM3 (1.8-7.7); BASOPHIL % 0.5 % (0.0-2.0); EOSINOPHIL # 0.4 TH/MM3 (0-0.4); EOSINOPHIL % 3.6 % (0.0-4.0); HEMATOCRIT 35.7 % (39.0-51.0); HEMO FLAGS DIFF FINAL; LYMPH % 20.8 % (9.0-44.0); MEAN CELL VOLUME 86.5 FL (80.0-100.0); MEAN CORPUSCULAR HEMOGLOBIN 29.4 PG (27.0-34.0); MONO % 8.2 % (0.0-8.0); NEUT % 66.9 % (16.0-70.0); PLATELET COUNT 286 TH/MM3 (150-450); RED BLOOD COUNT 4.13 MIL/MM3 (4.50-5.90); RED CELL DISTRIBUTION WIDTH 12.6 % (11.6-17.2); WHITE BLOOD COUNT 9.8 TH/MM3 (4.0-11.0)
[2016-08-18] MEDS: INSULIN ASPART SUPPLEMENTAL SCALE SQ SCH ×2 (07:34→13:36)
[2016-08-18 07:56] LABS: BICARBONATE 25.2 MEQ/L (21.0-32.0); POTASSIUM 4.1 MEQ/L (3.5-5.1)
[2016-08-18] MEDS: SODIUM CHLORIDE 0.9% FLUSH 5 ML FLUSH FLUSH SCH (08:58)
[2016-08-18] MEDS ORDERED: ENOXAPARIN SODIUM 40 MG/0.4 ML SYRINGE SQ SCH (09:00)
[2016-08-18] MEDS ORDERED: amLODIPine BESYLATE 5 MG TAB PO SCH (12:15)
[2016-08-18] MEDS ORDERED: ACETAMINOPHEN/HYDROcodone 325 MG/10 MG TAB PO PRN (12:15)
[2016-08-18] MEDS ORDERED: PANTOPRAZOLE SOD 40 MG DELAYED RELEASE TAB PO SCH (12:15)
[2016-08-18] MEDS ORDERED: CARVEDILOL 12.5 MG TAB PO SCH (12:15)
[2016-08-18] MEDS ORDERED: CYCLOBENZAPRINE HCL 10 MG TAB PO PRN (12:15)
[2016-08-18] MEDS ORDERED: APIXABAN 2.5 MG TABLET PO SCH ×2 (12:15→21:00)
[2016-08-18] MEDS ORDERED: MORPHINE SULFATE 15 MG CONTROLLED RELEASE TAB PO SCH (12:15)
[2016-08-18] MEDS ORDERED: LISINOPRIL 20 MG TAB PO SCH (12:15)
[2016-08-18] MEDS ORDERED: ALPRAZolam 0.25 MG TAB PO PRN (12:15)
[2016-08-18] MEDS ORDERED: GABAPENTIN 300 MG CAP PO SCH (13:00)
[2016-08-18] MEDS ORDERED: hydrALAZINE HCL 50 MG TAB PO SCH (13:00)
--- NOTE | 2016-08-18 13:42 | HHI.HP ---
[facility] Service [facility] Primary Care Physician No Primary Care Physician Admission Diagnosis hyperglycemia, foot ulcers Diagnoses: (1) Open wound of right foot Diagnosis: Principal (2) Noncompliance Diagnosis: Principal (3) Type 2 diabetes, uncontrolled, with neuropathy Diagnosis: Secondary (4) Chronic kidney disease, stage 3 Diagnosis: Secondary (5) HTN (hypertension) Diagnosis: Secondary (6) CVA (cerebral vascular accident) Diagnosis: Secondary (7) Constipation Diagnosis: Secondary Chief Complaint: Multiple complaints, patient sent here for evaluation Travel History International Travel<30 Days: No Contact w/Intl Traveler <30 Da: No Traveled to Known Affected Are: No History of Present Illness 61 year-old male with rather complex medical history to include hypertension, hyperlipidemia, diabetes, uncontrolled, chronic kidney disease stage III, history CVA, history of diabetic ulcerations requiring left below the knee amputation, open foot wounds, medical and medication noncompliance, chronic pain. Upon seeing the patient he states that he presented here at the request of a new primary medical doctor to get evaluated for his right foot. Patient indicates that he is been trying to get medical care for 8-12 weeks for his right foot. He has had excoriations on his right foot without any cellulitis or infection. He states that is been to the ER multiple times in has not been admitted. He states that he could not get his previous primary medical doctor to evaluate him, referred to director geophysical laboratory or prescribe medication and I did contact his previous primary medical doctor who indicates that the patient has not been to the office since June. She indicates that patient was discharged from their care on 08/09/16 due to medication, medical noncompliance, argumentation, aggressiveness toward medical staff. They do not know the new primary medical doctor is. The patient states that he does have a phone number for the new medical doctor, however he does not know the name. Phone number is [phone]. I tried contacting the number however went to voice mail and has not had a return call back yet. Patient indicates that he was sent here for his foot evaluation. Patient had workup done emergency department and documentation indicates that the patient presented with several problems. States that he is hypertensive at home however blood pressure is been mildly elevated here the hospital. He is hyperglycemic in which his blood sugars 455. However, patient states that his sugars tend to run higher than that at home. He states that his foot looks like it's infected however upon evaluation there does not appear to be any signs of any cellulitis. He indicates that he has constipation which she has not had a bowel movement in 2 weeks. Because of those above-mentioned reasons, it was recommended by the ER physician the patient be observed for diabetic control and initiating treatment for foot ulcers. Nurse practitioner who evaluated the patient at home yesterday nurse practitioner, Patricia. She indicates that she went evaluated for the first time in his house yesterday. At that time he notified her that his low sugar was 450 that morning. She rechecked his blood sugar and noticed it to be greater than the machine can read. She checked his blood sugar in the 170s/90. Nurse practitioner did not do any further evaluation or management, she states that she notified him that he needs to go to the emergency department for evaluation because she could not stay there to manage his diabetes. She notified him to take his largest dose of insulin with a 25 units and go directly to the ER. She states that she anticipated setting up home health care with wound care for his right lower extremity sores. Review of Systems Constitutional: DENIES: Diaphoretic episodes, Fatigue, Fever, Weight gain, Weight loss, Chills, Dizziness, Change in appetite, Night Sweats Eyes: DENIES: Blurred vision, Diplopia, Eye inflammation, Eye pain, Vision loss , Double Vision Ears, nose, mouth, throat: DENIES: Vertigo, Nasal discharge, Throat pain, Ear Pain, Running Nose, Sinus Pain Respiratory: DENIES: Apneas, Cough, Snoring, Wheezing, Hemoptysis, Sputum production, Shortness of breath Cardiovascular: DENIES: Chest pain, Palpitations, Syncope, Dyspnea on Exertion , Lower Extremity Edema, Orthopnea Gastrointestinal: COMPLAINS OF: Constipation, DENIES: Abdominal pain, Black stools, Bloody stools, Diarrhea, Nausea, Vomiting, Difficulty Swallowing, Anorexia Neurologic: DENIES: Abnormal gait, Headache, Localized weakness, Paresthesias, Seizures, Speech Problems, Tremor, Poor Balance Past Family Social History Past Medical History Hypertension Hyperlipidemia Diabetes Arthritis Left ankle fracture History of cellulitis of left foot History of cocaine abuse Gastroesophageal reflux Obesity Noncompliance Chronic right shoulder pain Chronic right lower extremity swelling Past Surgical History Right shoulder surgery Left ankle surgery Right knee surgery 2 Left [id number]-gwj-bqxu amputation Reported Medications Reported Meds & Active Scripts Active Hydrocodone-Acetaminophen 10-325 mg Tab 1 Tab PO Q6H PRN Flexeril (Cyclobenzaprine HCl) 5 Mg Tab 5 Mg PO TID PRN Alprazolam 0.25 Mg Tab 0.25 Mg PO BID PRN Morphine ER (Morphine Sulfate) 15 Mg Tab 15 Mg PO BID Gabapentin 300 Mg Cap 300 Mg PO TID Reported Omeprazole 40 Mg Cap 40 Mg PO DAILY Eliquis (Apixaban) 2.5 Mg Tab 2.5 Mg PO BID Novolin R Inj (Insulin Human Regular) 1,000 Unit/10 Ml Vial 1-9 Units SQ ACHS Max dose at bedtime:( )units; sugars less than 70,(0) units; sugars 200-249,(3 )unit; sugars 250-299,(5)units; sugars 300-349,(7) units; sugars greater than 349,(9)units Levemir Inj (Insulin Detemir) 1,000 unit/ 10 ML Vial 62 Units SQ Q12HR Do not mix with any other Insulin. 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 Family History Reviewed and significant for what he describes as his grandmothers heart exploding in her chest, father with laryngeal cancer, mother with diabetes Social History Patient denies any tobacco, alcohol or illicit drugs Physical Exam Vital Signs Vital Signs Date Time Temp Pulse Resp B/P Pulse Ox O2 Delivery O2 Flow Rate FiO2 08/18/16 12:00 98.0 80 19 139/75 99 08/18/16 08:57 98.1 78 17 143/70 99 08/18/16 07:25 75 18 96 08/18/16 05:35 72 18 148/69 92 Room Air 08/18/16 05:10 16 08/18/16 05:00 72 92 08/18/16 04:35 71 18 164/79 95 Room Air 08/18/16 03:35 70 18 174/90 92 Room Air 08/18/16 02:35 70 18 164/84 96 Room Air 08/18/16 01:30 68 94 08/18/16 01:30 98.7 68 18 161/79 94 Room Air 08/17/16 22:35 69 18 144/68 96 Room Air 08/17/16 21:30 69 18 95 08/17/16 20:15 62 18 178/87 94 Room Air 08/17/16 18:35 70 18 176/79 97 Room Air 08/17/16 17:29 71 18 142/73 Room Air 96 08/17/16 15:49 98.1 71 18 154/80 98 Physical Exam GENERAL: Well-developed, well-nourished, in no acute distress. alert and orientated HEENT: Head is normocephalic without any lesions or masses noted. Facial features are symmetric. Eyes: Pupils equal round reactive to light. Extraocular muscles are intact. Conjunctivae were clear. Oropharyngeal: Pharynx without any erythema edema. Tongue is midline without deviation. Buccal mucosa is moist without any masses or lesions NECK: Supple without any masses. Trachea midline no deviation. No JVD, no bruits are appreciated CARDIAC: Regular rhythm, regular rate. S1/S2 are heard. No murmurs gallops or rubs. LUNGS: Clear to auscultation bilaterally. No wheeze, rhonchi or rales. No use of accessory muscles on inspiration or expiration. ABDOMEN: Soft, nontender. Nondistended. Bowel sounds heard in all 4 quadrants. No organomegaly or masses. Negative rebound, negative guarding EXTREMITIES: No edema, No cyanosis or clubbing. Left miwup-jft-wbkx amputation NEUROLOGY: Mood and affect appear appropriate. Cranial nerves II through XII grossly intact. Muscle strength 5/5 in upper and lower extremities bilaterally. Deep tendon reflexes are 2+ in upper and lower extremities bilaterally. RIGHT FOOT: Patient does have a mild excoriation noted which has dried's eschar , signs of healing noted over the right dorsal surface of his foot measuring approximately 3 cm long. Patient also has wound noted superior to the right lateral malleolus which measures 5 cm long which has healing eschar without any signs of cellulitis. Laboratory Laboratory Tests Test 08/17/16 08/17/16 08/18/16 17:45 19:00 07:12 White Blood Count 8.2 9.8 Red Blood Count 4.27 4.13 Hemoglobin 12.5 12.1 Hematocrit 36.8 35.7 Mean Corpuscular Volume 86.1 86.5 Mean Corpuscular Hemoglobin 29.3 29.4 Mean Corpuscular Hemoglobin 34.1 34.0 Concent Red Cell Distribution Width 12.5 12.6 Platelet Count 323 286 Mean Platelet Volume 7.8 7.7 Neutrophils (%) (Auto) 66.1 66.9 Lymphocytes (%) (Auto) 19.4 20.8 Monocytes (%) (Auto) 8.6 8.2 Eosinophils (%) (Auto) 3.6 3.6 Basophils (%) (Auto) 2.3 0.5 Neutrophils # (Auto) 5.4 6.6 Lymphocytes # (Auto) 1.6 2.0 Monocytes # (Auto) 0.7 0.8 Eosinophils # (Auto) 0.3 0.4 Basophils # (Auto) 0.2 0.0 CBC Comment DIFF FINAL DIFF FINAL Differential Comment Sodium Level 134 141 Potassium Level 5.3 4.1 Chloride Level 101 107 Carbon Dioxide Level 24.3 25.2 Anion Gap 9 9 Blood Urea Nitrogen 52 38 Creatinine 2.00 1.60 Estimat Glomerular Filtration 34 44 Rate Random Glucose 455 252 Lactic Acid Level 1.9 Calcium Level 8.8 8.6 Total Bilirubin 0.3 Aspartate Amino Transf 17 (AST/SGOT) Alanine Aminotransferase 17 (ALT/SGPT) Alkaline Phosphatase 82 Total Protein 7.2 Albumin 3.2 B-Hydroxybutyrate 0.11 Urine Color YELLOW Urine Turbidity CLEAR Urine pH 6.0 Urine Specific [place] 1.014 Urine Protein 100 Urine Glucose (UA) 1000 OR GREATER Urine Ketones NEG Urine Occult Blood NEG Urine Nitrite NEG Urine Bilirubin NEG Urine Leukocyte Esterase NEG Urine Squamous Epithelial 0-5 Cells Urine Hyaline Casts 3-5 Urine Mucus OCC Microscopic Urinalysis Comment CULT NOT INDICATED Date/Time Procedure Status Source Growth 08/17/16 17:35 Gram Stain - Final Resulted Wound Foot 08/17/16 17:35 Wound Culture Resulted Wound Foot Pending Result Diagram: 08/18/16 0712 08/18/16 0712 Imaging Last Impressions Abdomen X-Ray 08/17/16 1723 Signed Impressions: Service Date/Time: Wednesday, August 17, 2016 17:49 - CONCLUSION: Moderate amount of stool in the transverse colon. Josep Pino MD Foot X-Ray 08/17/161718 Signed Impressions: Service Date/Time: Wednesday, August 17, 2016 18:00 - CONCLUSION: 1. Very prominent soft-tissue swelling. 2. Calcaneal spurs. Josep Pino MD Chest X-Ray 08/17/161718 Signed Impressions: Service Date/Time: Wednesday, August 17, 2016 17:47 - CONCLUSION: Suspected minimal atelectasis at the left lung base. Josep Pino MD Assessment and Plan Assessment and Plan Diabetes, uncontrolled, improved Patient started on Accu-Cheks and sliding scale insulin Beta hydroxybutyrate was normal. No signs of acidosis - patient encouraged to continue home insulin regimen and f/u with PCP Right foot wounds, no signs of infection manager business planning consulted to arrange home health care for wound care -patient instructed to keep leg elevated and use ban hose daily (noncompliant with this) Constipation, likely secondary to chronic narcotic use Abdominal x-ray shows moderate amount of stool in transverse Colon Counseled patient on increase fluid intake Recommended outpatient stool softener -Lactulose and pericolace Hypertension, mildly elevated Home medications have been continued Chronic kidney disease stage III with mild hyperkalemia, improved Continue monitor renal function Avoid nephrotoxins Medical/medication noncompliance Did speak with patient's previous physician in which he has been discharged from their service. Unable to contact new physician to discuss patient care - I did speak with the PATIENT CARE NURSING ASSISTANT from "My home doctor" Mar[facility] Leodan - this service was paid for by the patient's insurance while he is waiting to get into see his new primary care physician. The patient states he has been provided with a list of primary care physicians and will be calling tomorrow to get an appointment. The patient also states he had difficulty getting his Eliquis, Neurontin and pro -air filled from his previous PCPs office. I did transmit these to his new pharmacy to ensure he has these medications. Chronic pain Continue home medications History of CVA Continue anticoagulation with Eliquis DVT prevention Resume Eliquis Written by Capo Mcdonald PA-C, acting as scribe for Dr. Rene on 08/18/16 at 15:00 The documentation accurately reflects the work and decisions performed face-to- face by Dr. Rene on 08/18/16 at 15:00 Discharge disposition Discharge home with home health care for wound care, diabetic education Activity: Ad salima. Diet: Diabetic diet Medications per medication reconciliation Follow-up with primary medical doctor in one week Problem Qualifiers (1) HTN (hypertension): Qualified Code: I15.9 - Secondary hypertension (2) CVA (cerebral vascular accident): Qualified Code: I63.9 - Cerebrovascular accident (CVA), unspecified mechanism (3) Constipation: Qualified Code: K59.00 - Constipation, unspecified constipation type Capo Mcdonald Aug 18, 2016 13:42 Joann Rene MD Aug 18, 2016 19:10
--- NOTE | 2016-08-18 13:44 | HHI.FF ---
Face to Face Verification Diagnosis: (1) Diabetes mellitus (2) Obesity (3) Impaired mobility and activities of daily living (4) Foot ulcer, right Home Health Nursing Order: Medical education Signs/symptoms of disease process Diabetic education Wound care and dressing changes Nursing assessment with vital signs I have seen patient Josep Lyman on 08/18/16. My clinical findings support the need for the requested home health care services because: Limited ability to care for self I certify that my clinical findings support that this patient is homebound because: Unsteady gait/balance Capo Mcdonadl Aug 18, 2016 13:44 Joann Rene MD Aug 18, 2016 19:11
[2016-08-18] MEDS ORDERED: PERI8.6T PO (13:45)
--- NOTE | 2016-08-18 13:46 | HHI.DCPOC ---
Discharge Care Plan Diagnosis: (1) Open wound of right foot (2) Hypertension (3) Hyperglycemia Goals to Promote Your Health * To prevent worsening of your condition and complications * To maintain your health at the optimal level Directions to Meet Your Goals Take your medications as prescribed Follow your dietary instruction Follow activity as directed Keep your appointments as scheduled Take your immunizations and boosters as scheduled If your symptoms worsen call your PCP, if no PCP go to Urgent Care Center or Emergency Room Smoking is Dangerous to Your Health. Avoid second hand smoke Call the 24-hour hour crisis hotline for domestic abuse at Capo Mcdonald Aug 18, 2016 13:46
[2016-08-18] MEDS ORDERED: GABA300C5 PO (14:32)
[2016-08-18] MEDS ORDERED: ALBUAER3 INH (14:32)
[2016-08-18] MEDS ORDERED: APIX2.5T PO (14:32)
[2016-08-18] MEDS ORDERED: INFLUENZA VIRUS VACCINE (QUADRIVALENT) 0.5 ML SYR IM ONE (15:00)
[2016-08-18] MEDS ORDERED: PNEUMOCOCCAL POLYVALENT INJ 25 MCG/0.5 ML SYR IM ONE (15:00)
[2016-08-18] MEDS ORDERED: LACT10SO PO (15:29)
[2016-08-18] MEDS ORDERED: ATORVASTATIN 40 MG TAB PO SCH (21:00)
--- NOTE | 2016-08-18 23:01 | EKG ---
Date Performed: 08/17/2016 Time Performed: 17:30:52 PTAGE: 61 years EKG: Sinus rhythm Normal ECG PREVIOUS TRACING : 07/05/2016 20.16 DOCTOR: Eduardo Acosta Interpretating Date/Time 08/18/2016 22:57:23
[2016-08-23] MEDS ORDERED: MORP1TAB24 PO (10:15)
[2016-08-23] MEDS ORDERED: ALPR0.25 PO (10:16)
[2016-08-23] MEDS ORDERED: GABA300C5 PO (10:16)
[2016-08-23] MEDS ORDERED: HYDR-3583 PO (10:16)
[2016-08-23] MEDS ORDERED: CYCL5TAB PO (10:22)
[2016-08-26] MEDS ORDERED: MUPI2OIN TOPICAL (12:55)
[2016-08-26] MEDS ORDERED: RANI150T PO (15:49)
[2016-08-26] MEDS ORDERED: LEVEMIR SQ (15:55)
[2016-08-30] MEDS ORDERED: ALBUAER3 INH (09:09)
[2016-08-30] MEDS ORDERED: AMLO5TAB2 PO (09:09)
[2016-09-09] MEDS ORDERED: LEVEMIR SQ (14:05)
[2016-09-09] MEDS ORDERED: OMEP20TA PO (14:06)
[2016-09-09] MEDS ORDERED: INSU-170 (14:25)
[2016-09-17] MEDS ORDERED: APIX2.5T PO (13:46)
[2016-09-20] MEDS ORDERED: APIX2.5T PO (13:33)
[2016-09-27] MEDS ORDERED: NOVORP2 SQ (13:14)
[2016-10-07] MEDS ORDERED: OMEP20TA PO (14:10)
[2016-10-08] MEDS ORDERED: MORP1TAB24 PO (15:14)
[2016-10-08] MEDS ORDERED: HYDR-3583 PO (15:14)
[2016-10-08] MEDS ORDERED: ALPR0.25 PO (15:14)
[2016-10-08] MEDS ORDERED: CYCL5TAB PO (15:15)
[2016-10-18] MEDS ORDERED: LIPI40TA PO (14:47)
[2016-10-28] MEDS ORDERED: ALBUAER3 INH (15:17)
[2016-11-01] MEDS ORDERED: NOVORP2 SQ (12:42)
[2016-11-02] MEDS ORDERED: GLUC1TES75 (15:17)
[2016-11-03] MEDS ORDERED: GLUC1TES75 (10:43)
[2016-11-04] MEDS ORDERED: CARV12.5 PO (16:54)
[2016-11-05] MEDS ORDERED: MORP1TAB24 PO (10:40)
[2016-11-05] MEDS ORDERED: HYDR-3583 PO (10:40)
[2016-11-05] MEDS ORDERED: ALPR0.25 PO (10:40)
[2016-11-19] MEDS ORDERED: LEVEMIR SQ (14:01)
[2016-11-26] MEDS ORDERED: NOVORP2 SQ (14:48)
[2016-11-26] MEDS ORDERED: LIPI40TA PO (14:50)
[2016-12-10] MEDS ORDERED: MORP1TAB24 PO (15:00)
[2016-12-10] MEDS ORDERED: HYDR-3583 PO (15:00)
[2016-12-10] MEDS ORDERED: ALPR0.25 PO (15:00)
== END 2016-08-18 15:34 | disposition home or self-care (01) ==
LOC: PHED 15:40 → PHEDA 19:50 → PHEDH 23:50 → PH3A 08-18 08:39
PROVIDERS: ADMIT Family Medicine; ATTEND Family Medicine
DX: E11.621 Type 2 diabetes mellitus with foot ulcer (principal); L97.511 Non-pressure chronic ulcer of other part of right foot limited to breakdown of skin; E11.65 Type 2 diabetes mellitus with hyperglycemia; E11.40 Type 2 diabetes mellitus with diabetic neuropathy, unspecified; I12.9 Hypertensive chronic kidney disease with stage 1 through stage 4 chronic kidney disease, or unspecified chronic kidney disease; E11.22 Type 2 diabetes mellitus with diabetic chronic kidney disease; N18.3 Chronic kidney disease, stage 3 (moderate); K59.00 Constipation, unspecified; R60.0 Localized edema; G47.30 Sleep apnea, unspecified; E78.5 Hyperlipidemia, unspecified; I25.2 Old myocardial infarction; G89.29 Other chronic pain; Z91.19 Patient's noncompliance with other medical treatment and regimen; Z89.512 Acquired absence of left leg below knee; Z91.14 Patient's other noncompliance with medication regimen; Z86.73 Personal history of transient ischemic attack (TIA), and cerebral infarction without residual deficits; Z23 Encounter for immunization
CPT/HCPCS: 71010; 73630; 74020; 80048; 80053; 81001; 82010; 83605; 85025; 86403; 87070; 87205; 90471; 90686; 90732; 93005; 96365; 99285; G0378; J0690; J1650; J1815; J1956; J2270; J7030; G0008; G0009; Q2038

== ENCOUNTER 2017-08-24 12:40 | Emergency (ER) | payer OTHER ==
[~2017-08-24 12:40] MED LIST changes: +ALBUAER3 INH; -AMLO5TAB2 PO; -ATOR40TA16 PO; +AZIT250T3 PO; +FLUT50SP EACH NARE; +GLUC1TES75; +HYDR-3799 PO; -HYDR50TA15 PO; +LIPI40TA PO; +OMEP20TA93 PO; -OMEP40CA2 PO; +PEN29MIS; +RANI150T PO; +TRUE METRIX BLO1 KIT SQ
[2017-08-24 12:56] VITALS: BP 190/100; PULSE 60; RESP 18; TEMP 98.7; O2SAT 96
[2017-08-24] MEDS ORDERED: ACETAMINOPHEN/HYDROcodone 325 MG/5 MG TAB PO ONE (13:00)
[2017-08-24] MEDS ORDERED: SODIUM CHLORIDE 0.9% FLUSH 10 ML FLUSH IVF PRN (13:00)
[2017-08-24 13:02] VITALS: BP 198/93; PULSE 67; RESP 18; O2SAT 97
[2017-08-24 13:30] LABS: AUTOMATED NEUTROPHIL # 7.2 TH/MM3 (1.8-7.7); BASOPHIL # 0.1 TH/MM3 (0-0.2); BASOPHIL % 0.8 % (0.0-2.0); EOSINOPHIL # 0.3 TH/MM3 (0-0.4); EOSINOPHIL % 3.4 % (0.0-4.0); HEMATOCRIT 38.9 % (39.0-51.0); HEMOGLOBIN 13.2 GM/DL (13.0-17.0); LYMPH % 14.2 % (9.0-44.0); LYMPHOCYTE # 1.4 TH/MM3 (1.0-4.8); MEAN CELL VOLUME 86.7 FL (80.0-100.0); MEAN CORPUSCULAR HEMOGLOBIN 29.4 PG (27.0-34.0); MEAN CORPUSCULAR HGB CONC 33.9 % (32.0-36.0); MEAN PLATELET VOLUME 7.4 FL (7.0-11.0); MONO % 7.1 % (0.0-8.0); MONOCYTE # 0.7 TH/MM3 (0-0.9); NEUT % 74.5 % (16.0-70.0); PLATELET COUNT 270 TH/MM3 (150-450); RED BLOOD COUNT 4.49 MIL/MM3 (4.50-5.90); WHITE BLOOD COUNT 9.7 TH/MM3 (4.0-11.0)
--- NOTE | 2017-08-24 13:35 | RADRPT ---
EXAM DATE/TIME: 08/24/2017 13:08 [facility] COMPARISON: CT BRAIN W/O CONTRAST, July 30, 2016, 15:57. INDICATIONS : Fall RADIATION DOSE: 38.45 CTDIvol (mGy) MEDICAL HISTORY : Cerebrovascular disease. Cardiovascular disease Hypertension.Diabetes,,renal failure SURGICAL HISTORY : Orthopedic ENCOUNTER: Initial ACUITY: 1 day PAIN SCALE: 5/10 LOCATION: cranial TECHNIQUE: Multiple contiguous axial images were obtained of the head. Using automated exposure control and adj ustment of the mA and/or kV according to patient size, radiation dose was kept as low as reasonably a chievable to obtain optimal diagnostic quality images. DICOM format image data is available electro nically for review and comparison. FINDINGS: There are small remote lacunar infarcts in the payton radiata bilaterally. The brain is overlie symme tric and unremarkable. There is no evidence of mass or hemorrhage. There is nothing to suggest acute infarction. There are some layering secretions in the left sphenoid sinus. No evidence of skull fracture. CONCLUSION: No acute intra-cranial injury. Sphenoid sinusitis. Josep Saldana MD on August 24, 2017 at 13:31 Board Certified Radiologist. This report was verified electronically.
--- NOTE | 2017-08-24 13:40 | PD ---
HPI Chief Complaint: Fall Time Seen by Provider: 12:52 Travel History International Travel<30 days: No Contact w/Intl Traveler<30days: No Traveled to known affect area: No History of Present Illness HPI 62-year-old male with PMH of chronic low back pain, CVA, DM, GERD, HTN, on Eliquis presents to the ED via EMS after mechanical fall at home today. Patient states that he was trying to maneuver his wheelchair, fell backwards, striking his head on the pavement. He is unsure of any loss of consciousness. On arrival he complains of 5/10 posterior head pain and lower back pain. He endorses mild dizziness. He denies vision changes, palpitations, shortness of breath, abdominal pain, nausea, vomiting, pain in the extremities. States that his lower back pain is similar to his normal pain. Endorses taking all his medications today. PFSH Past Medical History Hx Anticoagulant Therapy: Yes Arthritis: Yes Asthma: No Autoimmune Disease: No Anxiety: Yes Depression: No Heart Rhythm Problems: No Cancer: No Cardiovascular Problems: Yes High Cholesterol: Yes Chemotherapy: No Chest Pain: Yes Congestive Heart Failure: No COPD: No Cerebrovascular Accident: Yes Diabetes: Yes Patient Takes Glucophage: No Diminished Hearing: No Endocrine: Yes Gastrointestinal Disorders: Yes GERD: Yes Genitourinary: Yes Headaches: Yes Hiatal Hernia: Yes Heparin Induced Thrombocytopen: No Hypertension: Yes Immune Disorder: No Implanted Vascular Access Dvce: No Kidney Stones: No Musculoskeletal: Yes Neurologic: Yes Psychiatric: Yes Reproductive: No Respiratory: Yes Immunizations Current: Yes Migraines: Yes Myocardial Infarction: Yes Radiation Therapy: No Renal Failure: No Seizures: No Sickle Cell Disease: No Sleep Apnea: Yes Thyroid Disease: No Triglycerides - High: Yes Ulcer: No Past Surgical History Abdominal Surgery: No AICD: No Arteriovenous Shunt: No Cardiac Surgery: No Ear Surgery: No Endocrine Surgery: No Eye Surgery: No Genitourinary Surgery: No Gynecologic Surgery: No Hysterectomy: No Insulin Pump: No Joint Replacement: No Neurologic Surgery: No Oral Surgery: No Pacemaker: No Thoracic Surgery: No Social History Alcohol Use: Yes (wine occ) Tobacco Use: No (second hand smoke from caregiver) Substance Use: No Allergies-Medications (Allergen,Severity, Reaction): Coded Allergies: penicillin G (Verified Allergy, Severe, Hives, SOB, 07/20/17) *MDRO Multi-Drug Resistant Organism (Verified Adverse Reaction, Severe, ) 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 Reported Meds & Prescriptions Reported Meds & Active Scripts Active Hydrocodone-Acetaminophen 10-325 mg Tab 1 Tab PO Q6H PRN Alprazolam 0.25 Mg Tab 0.25 Mg PO BID PRN Morphine ER (Morphine Sulfate) 15 Mg Tab 15 Mg PO BID Lisinopril 20 Mg Tab 20 Mg PO Q12HR Ranitidine (Ranitidine HCl) 150 Mg Tab 150 Mg PO BID Fluticasone Nasal [place] 50 Mcg/Act Naspr 50 Mcg EACH NARE BID 50 mcg/spray Novolin R Inj (Insulin Human Regular) 1,000 Unit/10 Ml Vial 1-9 Units SQ ACHS Hydralazine HCl 25 Mg Tablet 50 Mg PO TID Proair Hfa 8.5 GM Inh (Albuterol Sulfate) 90 Mcg/Act Aer 2 Puff INH Q4-6H PRN 108 mcg/actuation Fluticasone Nasal [place] 50 Mcg/Act Naspr 50 Mcg EACH NARE BID 50 mcg/spray Pen [place] 29GX1/2" 29G X 12Mm (Insulin Pen Needle) 1 Mis Mis 1 Box .ROUTE BID Lasix (Furosemide) 40 Mg Tab 40 Mg PO BID PRN Levemir Inj (Insulin Detemir) 1,000 unit/ 10 ML Vial 100 Units SQ Q12HR Do not mix with any other Insulin. True Metrix Glucose Test Strips (Blood Glucose Test Strips) 1 Kassandra Kassandra 1 Ea .ROUTE QID Eliquis (Apixaban) 2.5 Mg Tab 2.5 Mg PO BID Gabapentin 300 Mg Cap 300 Mg PO TID Azithromycin 250 Mg Tab 250 Mg PO DIRECTED Take 2 tabs (500 mg) on day 1 then 1 tab daily x 4 days. True Metrix Blood Glucose W/Device (Device) 1 Kit Kit Kit SQ DIRECTED Lipitor (Atorvastatin Calcium) 40 Mg Tab 40 Mg PO HS Flexeril (Cyclobenzaprine HCl) 5 Mg Tab 5 Mg PO TID PRN Coreg (Carvedilol) 12.5 Mg Tab 12.5 Mg PO Q12HR Omeprazole 20 Mg Tab 20 Mg PO DAILY Reported Hydralazine HCl 25 Mg Tablet 50 Mg PO TID Novolin R Inj (Insulin Human Regular) 1,000 Unit/10 Ml Vial 1-9 Units SQ ACHS Max dose at bedtime:( )units; sugars less than 70,(0) units; sugars 150-199,(1)unit; sugars 200-249,(3)units; sugars 250-299,(5) units; sugars 300-349,(7)units; sugars greater than 349,(9)units Proair Hfa 8.5 GM Inh (Albuterol Sulfate) 90 Mcg/Act Aer 2 Puff INH Q4-6H PRN 108 mcg/actuation Review of Systems Except as stated in HPI: all other systems reviewed are Neg Physical Exam Narrative GENERAL: Well-nourished, well-developed white male in no acute distress. On a backboard, wearing a c-collar. SKIN: Warm and dry. It is small contusion on the apex of the occiput. Thorough evaluation reveals no other edema, ecchymosis, abrasion, or laceration of the skin. HEAD: Normocephalic. Atraumatic. No raccoon eyes or echeverria sign. No tenderness to palpation of the skull. No bony step-offs. No malocclusion of the teeth. EYES: No scleral icterus. No injection or drainage. PERRLA. EOMI. ENT: Pearly rosa tympanic membrane is bilaterally. Nasal mucosa is moist. Oropharynx without erythema, edema or exudate. NECK: Supple, trachea midline. No JVD or lymphadenopathy. No midline tenderness to palpation. Patient retains full, active, painless range of motion of the neck. Mild tenderness to palpation of the paraspinal musculature in the cervical region. CARDIOVASCULAR: Regular rate and rhythm without murmurs, gallops, or rubs. 2+ DP and radial pulses bilaterally. RESPIRATORY: Breath sounds clear and equal bilaterally. No accessory muscle use. GASTROINTESTINAL: Abdomen soft, non-tender, nondistended. + Bowel sounds MUSCULOSKELETAL: No cyanosis, or edema. Left AKA. No tenderness to palpation or limitations to range of motion of the joints of the upper and lower extremities bilaterally. NEUROLOGICAL: Awake and alert. Cranial nerves II through XII intact. Motor and sensory grossly within normal limits. 5/5 muscle strength in all muscle groups. Normal speech. BACK: Nontender without obvious deformity. No CVA tenderness. No midline tenderness. Data Data Last Documented VS Vital Signs Date Time Temp Pulse Resp B/P (MAP) Pulse Ox O2 Delivery O2 Flow Rate FiO2 08/24/17 14:46 178/84 (115) 08/24/17 13:02 67 18 97 Room Air 08/24/17 12:56 98.7 Orders Orders Complete Blood Count With Diff (08/24/17 12:50) Basic Metabolic Panel (Bmp) (08/24/17 12:50) Prothrombin Time / Inr (Pt) (08/24/17 12:50) Act Partial Throm Time (Ptt) (08/24/17 12:50) Spine, Cervical - Ltd (Ap&Lat) (08/24/17 12:50) Ct Brain W/O Iv Contrast(Rout) (08/24/17 12:50) Ecg Monitoring (08/24/17 12:50) Iv Access Insert/Monitor (08/24/17 12:50) Oximetry (08/24/17 12:50) Sodium Chloride 0.9% Flush (Ns Flush) (08/24/17 13:00) Acetamin-Hydrocod 325-5 Mg ([place] 5-325 (08/24/17 13:00) Ed Discharge Order (08/24/17 14:21) Labs Laboratory Tests Test 08/24/17 13:21 White Blood Count 9.7 TH/MM3 Red Blood Count 4.49 MIL/MM3 Hemoglobin 13.2 GM/DL Hematocrit 38.9 % Mean Corpuscular Volume 86.7 FL Mean Corpuscular Hemoglobin 29.4 PG Mean Corpuscular Hemoglobin Concent 33.9 % Red Cell Distribution Width 14.0 % Platelet Count 270 TH/MM3 Mean Platelet Volume 7.4 FL Neutrophils (%) (Auto) 74.5 % Lymphocytes (%) (Auto) 14.2 % Monocytes (%) (Auto) 7.1 % Eosinophils (%) (Auto) 3.4 % Basophils (%) (Auto) 0.8 % Neutrophils # (Auto) 7.2 TH/MM3 Lymphocytes # (Auto) 1.4 TH/MM3 Monocytes # (Auto) 0.7 TH/MM3 Eosinophils # (Auto) 0.3 TH/MM3 Basophils # (Auto) 0.1 TH/MM3 CBC Comment DIFF FINAL Differential Comment Prothrombin Time 10.4 SEC Prothromb Time International Ratio 1.0 RATIO Activated Partial Thromboplast Time 23.3 SEC Blood Urea Nitrogen 38 MG/DL Creatinine 1.71 MG/DL Random Glucose 242 MG/DL Calcium Level 9.2 MG/DL Sodium Level 137 MEQ/L Potassium Level 4.5 MEQ/L Chloride Level 105 MEQ/L Carbon Dioxide Level 24.5 MEQ/L Anion Gap 8 MEQ/L Estimat Glomerular Filtration Rate 41 ML/MIN MDM Medical Decision Making Medical Screen Exam Complete: Yes Emergency Medical Condition: Yes Differential Diagnosis Fall from standing versus contusion versus musculoskeletal pain versus less likely skull fracture versus less likely cervical spinal fracture versus less likely ICH versus other Narrative Course 62-year-old male with PMH of chronic low back pain, CVA, DM, GERD, HTN, on Eliquis presents to the ED via EMS after mechanical fall at home today. Patient states that he was trying to maneuver his wheelchair, fell backwards, striking his head on the pavement. ? loss of consciousness. On arrival he complains of 5/10 posterior head pain and lower back pain. He endorses mild dizziness. Patient's hypertensive on presentation. He arrives on a backboard, wearing a c-collar. Patient was cleared from the backboard. Physical exam reveals contusion at the apex of the occiput, mild paraspinal muscular tenderness in the cervical region, otherwise unremarkable. Patient was administered 5 mg or cold by mouth. CT brain negative for intracranial pathology per radiology read. X-ray cervical spine reveals degenerative changes , no acute bony injury. CBC and coags unremarkable. CMP with elevated creatinine and BUN. Chronic per record review. On recheck patient reports improvement of his symptoms, BP trending downwards. He is stable and discharged home. Diagnosis Primary Impression: Fall from standing Qualified Codes: W19.XXXA - Unspecified fall, initial encounter Additional Impressions: Closed head injury Qualified Codes: S09.90XA - Unspecified injury of head, initial encounter Contusion of scalp, initial encounter Referrals: Primary Care Physician Patient Instructions: Fall Prevention (ED), General Instructions, Head Injury ( DC) Additional Instructions: Rest, hydrate. Return to normal, gentle activities as tolerated. Ice or heat applied to areas of pain 10-15 minutes per session a few times a day may help to improve your symptoms. OTC pain relievers as directed on label, as needed for pain. Follow-up with the primary care provider. Return to the ED for any urgent or emergent medical condition. Disposition: DISCHARGE HOME Condition: Stable Vanessa Barreto Aug 24, 2017 13:40
--- NOTE | 2017-08-24 13:50 | RADRPT ---
EXAM DATE/TIME: 08/24/2017 13:28 [facility] COMPARISON: FOOT RIGHT COMPLETE ([id number]), August 17, 2016, 18:00. INDICATIONS : Neck pain; fall today. MEDICAL HISTORY : None. SURGICAL HISTORY : None. ENCOUNTER: Initial ACUITY: 1 day PAIN SCORE: 7/10 LOCATION: Bilateral neck FINDINGS: 2 views of the cervical spine are provided. There is 7 cervical vertebral bodies. There are severely degenerated disc at C4/5, C5/6 and C6/7. There is minimal anterolisthesis of C3 relative to C4. No ac bishop fracture or destructive lesion is identified. The atlantodens joint is intact. CONCLUSION: 1. Advanced degenerative changes as above. No acute abnormality identified. Lui Smyth MD on August 24, 2017 at 13:48 Board Certified Radiologist. This report was verified electronically.
[2017-08-24 13:52] LABS: PROTHROMBIN TIME - PATIENT 10.4 SEC (9.8-11.6)
[2017-08-24 14:08] LABS: BICARBONATE 24.5 MEQ/L (21.0-32.0); CALCIUM 9.2 MG/DL (8.5-10.1); CREATININE 1.71 MG/DL (0.60-1.30)
[2017-08-24 14:46] VITALS: BP 178/84
== END 2017-08-24 15:15 | disposition home or self-care (01) ==
LOC: NEPC 12:40
DX: S00.03XA Contusion of scalp, initial encounter (principal); M54.5 Low back pain; I10 Essential (primary) hypertension; E11.9 Type 2 diabetes mellitus without complications; G89.29 Other chronic pain; R42 Dizziness and giddiness; W05.0XXA Fall from non-moving wheelchair, initial encounter; Y92.008 Other place in unspecified non-institutional (private) residence as the place of occurrence of the external cause; Z79.01 Long term (current) use of anticoagulants
CPT/HCPCS: 70450; 72040; 80048; 85025; 85610; 85730

== ENCOUNTER 2017-09-29 20:18 | Inpatient (IN) | payer OTHER ==
[~2017-09-29] VITALS: Ht 182.9 cm; Wt 130.4 kg
[2017-09-29 20:26] VITALS: BP 167/77; PULSE 83; RESP 20; TEMP 98.6; O2SAT 94
--- NOTE | 2017-09-29 21:20 | PD ---
HPI Chief Complaint: Skin Problem Time Seen by Provider: 21:06 Travel History International Travel<30 days: No Contact w/Intl Traveler<30days: No Traveled to known affect area: No History of Present Illness HPI 62-year-old male complains of redness swelling and discharge from the right leg. Patient states that he noticed a small bubble lesion on the right lower leg 2 weeks ago. Patient states that has increase in redness swelling since then. Patient was seen by personal physician 3 days ago and was advised local wound care. Patient states that he has increasing redness swelling since then. Patient has history of hypertension, diabetes, hyperlipidemia. Patient is a non-smoker. Patient states that he had left leg amputation in the past for osteomyelitis. PFSH Past Medical History Hx Anticoagulant Therapy: Yes Arthritis: Yes Asthma: No Autoimmune Disease: No Anxiety: Yes Depression: No Heart Rhythm Problems: No Cancer: No Cardiovascular Problems: Yes High Cholesterol: Yes Chemotherapy: No Chest Pain: Yes Congestive Heart Failure: No COPD: No Cerebrovascular Accident: Yes Diabetes: Yes Patient Takes Glucophage: No Diminished Hearing: No Endocrine: Yes Gastrointestinal Disorders: Yes GERD: Yes Genitourinary: Yes Headaches: Yes Hiatal Hernia: Yes Heparin Induced Thrombocytopen: No Hypertension: Yes Immune Disorder: No Implanted Vascular Access Dvce: No Kidney Stones: No Musculoskeletal: Yes Neurologic: Yes Psychiatric: Yes Reproductive: No Respiratory: Yes Immunizations Current: Yes Migraines: Yes Myocardial Infarction: Yes Radiation Therapy: No Renal Failure: No Seizures: No Sickle Cell Disease: No Sleep Apnea: Yes Thyroid Disease: No Triglycerides - High: Yes Ulcer: No ?: Not Past Surgical History Abdominal Surgery: No AICD: No Arteriovenous Shunt: No Cardiac Surgery: No Ear Surgery: No Endocrine Surgery: No Eye Surgery: No Genitourinary Surgery: No Gynecologic Surgery: No Hysterectomy: No Insulin Pump: No Joint Replacement: No Neurologic Surgery: No Oral Surgery: No Pacemaker: No Thoracic Surgery: No Social History Alcohol Use: Yes (wine occ) Tobacco Use: No (second hand smoke from caregiver) Substance Use: No Allergies-Medications (Allergen,Severity, Reaction): Coded Allergies: penicillin G (Verified Allergy, Severe, Hives, SOB, 07/20/17) *MDRO Multi-Drug Resistant Organism (Verified Adverse Reaction, Severe, ) 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 Reported Meds & Prescriptions Reported Meds & Active Scripts Active Hydrocodone-Acetaminophen 10-325 mg Tab 1 Tab PO Q6H PRN Alprazolam 0.25 Mg Tab 0.25 Mg PO BID PRN Morphine ER (Morphine Sulfate) 15 Mg Tab 15 Mg PO BID Lisinopril 20 Mg Tab 20 Mg PO Q12HR Novolin R Inj (Insulin Human Regular) 1,000 Unit/10 Ml Vial 1-9 Units SQ ACHS Proair Hfa 8.5 GM Inh (Albuterol Sulfate) 90 Mcg/Act Aer 2 Puff INH Q4-6H PRN 108 mcg/actuation Fluticasone Nasal [place] 50 Mcg/Act Naspr 50 Mcg EACH NARE BID 50 mcg/spray Pen [place] 29GX1/2" 29G X 12Mm (Insulin Pen Needle) 1 Mis Mis 1 Box .ROUTE BID Lasix (Furosemide) 40 Mg Tab 40 Mg PO BID PRN True Metrix Glucose Test Strips (Blood Glucose Test Strips) 1 Kassandra Kassandra 1 Ea .ROUTE QID Eliquis (Apixaban) 2.5 Mg Tab 2.5 Mg PO BID Gabapentin 300 Mg Cap 300 Mg PO TID True Metrix Blood Glucose W/Device (Device) 1 Kit Kit Kit SQ DIRECTED Lipitor (Atorvastatin Calcium) 40 Mg Tab 40 Mg PO HS Coreg (Carvedilol) 12.5 Mg Tab 12.5 Mg PO Q12HR Reported Hydralazine HCl 25 Mg Tablet 50 Mg PO TID Novolin R Inj (Insulin Human Regular) 1,000 Unit/10 Ml Vial 1-9 Units SQ ACHS Max dose at bedtime:( )units; sugars less than 70,(0) units; sugars 150-199,(1)unit; sugars 200-249,(3)units; sugars 250-299,(5) units; sugars 300-349,(7)units; sugars greater than 349,(9)units Proair Hfa 8.5 GM Inh (Albuterol Sulfate) 90 Mcg/Act Aer 2 Puff INH Q4-6H PRN 108 mcg/actuation Review of Systems General / Constitutional: No: Fever Eyes: No: Visual changes HENT: No: Headaches Cardiovascular: No: Chest Pain or Discomfort Respiratory: No: Shortness of Breath Gastrointestinal: No: Abdominal Pain Genitourinary: No: Dysuria Musculoskeletal: Positive: Edema, Pain Skin: No Rash Neurologic: No: Weakness Psychiatric: No: Depression Endocrine: No: Polydipsia Hematologic/Lymphatic: No: Easy Bruising Physical Exam Narrative GENERAL: Well-nourished, well-developed patient. SKIN: Focused skin assessment warm/dry. HEAD: Normocephalic. EYES: No scleral icterus. No injection or drainage. NECK: Supple, trachea midline. No JVD or lymphadenopathy. CARDIOVASCULAR: Regular rate and rhythm without murmurs, gallops, or rubs. RESPIRATORY: Breath sounds equal bilaterally. No accessory muscle use. GASTROINTESTINAL: Abdomen soft, non-tender, nondistended. MUSCULOSKELETAL: Patient had 2 open wound lesions on the anterior aspect the right lower leg with serosanguineous discharge noted. Redness swelling extending from the ankle to the proximal aspect the right lower leg. No induration. Neurologic exam normal. BACK: Nontender without obvious deformity. No CVA tenderness. Data Data Last Documented VS Vital Signs Date Time Temp Pulse Resp B/P (MAP) Pulse Ox O2 Delivery O2 Flow Rate FiO2 09/29/17 22:02 78 20 160/82 (108) 98 Room Air 09/29/17 20:26 98.6 Orders Orders Complete Blood Count With Diff (09/29/17 21:12) Comprehensive Metabolic Panel (09/29/17 21:12) Prothrombin Time / Inr (Pt) (09/29/17 21:12) Act Partial Throm Time (Ptt) (09/29/17 21:12) Blood Culture (09/29/17 21:12) Wound Culture And Gram Stain (09/29/17 21:12) Iv Access Insert/Monitor (09/29/17 21:12) Ecg Monitoring (09/29/17 21:12) Oximetry (09/29/17 21:12) Sodium Chlor 0.9% 1000 Ml Inj (Ns 1000 M (09/29/17 21:30) Vancomycin Inj (Vancomycin Inj) (09/29/17 21:30) Ondansetron Inj (Zofran Inj) (09/29/17 22:00) Labs Laboratory Tests Test 09/29/17 21:30 White Blood Count 11.3 TH/MM3 Red Blood Count 4.37 MIL/MM3 Hemoglobin 12.5 GM/DL Hematocrit 37.9 % Mean Corpuscular Volume 86.8 FL Mean Corpuscular Hemoglobin 28.7 PG Mean Corpuscular Hemoglobin Concent 33.0 % Red Cell Distribution Width 13.3 % Platelet Count 284 TH/MM3 Mean Platelet Volume 7.5 FL Neutrophils (%) (Auto) 75.3 % Lymphocytes (%) (Auto) 14.6 % Monocytes (%) (Auto) 6.1 % Eosinophils (%) (Auto) 3.4 % Basophils (%) (Auto) 0.6 % Neutrophils # (Auto) 8.4 TH/MM3 Lymphocytes # (Auto) 1.7 TH/MM3 Monocytes # (Auto) 0.7 TH/MM3 Eosinophils # (Auto) 0.4 TH/MM3 Basophils # (Auto) 0.1 TH/MM3 CBC Comment DIFF FINAL Differential Comment Prothrombin Time 10.4 SEC Prothromb Time International Ratio 1.0 RATIO Activated Partial Thromboplast Time 26.5 SEC Blood Urea Nitrogen 38 MG/DL Creatinine 1.90 MG/DL Random Glucose 138 MG/DL Total Protein 7.3 GM/DL Albumin 3.3 GM/DL Calcium Level 8.7 MG/DL Alkaline Phosphatase 75 U/L Aspartate Amino Transf (AST/SGOT) 12 U/L Alanine Aminotransferase (ALT/SGPT) 19 U/L Total Bilirubin 0.2 MG/DL Sodium Level 140 MEQ/L Potassium Level 4.0 MEQ/L Chloride Level 107 MEQ/L Carbon Dioxide Level 27.0 MEQ/L Anion Gap 6 MEQ/L Estimat Glomerular Filtration Rate 36 ML/MIN [facility] Medical Decision Making Medical Screen Exam Complete: Yes Emergency Medical Condition: Yes Interpretation(s) 22:57 PM. CBC WBC 11.3. Hemoglobin 12.5 hematocrit 37.9. 75 neutrophil. BUN 38. Creatinine 1.90. GFR 36. Glucose 138. Differential Diagnosis Differential diagnosis including cellulitis, abscess. Narrative Course 62-year-old male with open wound lesions on the right lower leg with redness swelling tenderness. History of diabetes. Normal saline solution 70 cc an hour. Vancomycin 1 g IV given. Diagnosis Primary Impression: Cellulitis of right leg Admitting Information Admitting Physician Requests: Maxim Pepper MD Sep 29, 2017 21:20
[2017-09-29] MEDS ORDERED: VANCOMYCIN INJ 1,000 MG in SODIUM CHLOR 0.9% 250 ML INJ 250 ML IV ONE (21:30)
[2017-09-29 21:41] LABS: AUTOMATED NEUTROPHIL # 8.4 TH/MM3 (1.8-7.7); BASOPHIL # 0.1 TH/MM3 (0-0.2); BASOPHIL % 0.6 % (0.0-2.0); EOSINOPHIL # 0.4 TH/MM3 (0-0.4); EOSINOPHIL % 3.4 % (0.0-4.0); HEMATOCRIT 37.9 % (39.0-51.0); HEMOGLOBIN 12.5 GM/DL (13.0-17.0); LYMPH % 14.6 % (9.0-44.0); LYMPHOCYTE # 1.7 TH/MM3 (1.0-4.8); MEAN CELL VOLUME 86.8 FL (80.0-100.0); MEAN CORPUSCULAR HEMOGLOBIN 28.7 PG (27.0-34.0); MEAN PLATELET VOLUME 7.5 FL (7.0-11.0); MONO % 6.1 % (0.0-8.0); MONOCYTE # 0.7 TH/MM3 (0-0.9); NEUT % 75.3 % (16.0-70.0); PLATELET COUNT 284 TH/MM3 (150-450); RED BLOOD COUNT 4.37 MIL/MM3 (4.50-5.90); RED CELL DISTRIBUTION WIDTH 13.3 % (11.6-17.2); WHITE BLOOD COUNT 11.3 TH/MM3 (4.0-11.0)
[2017-09-29] MEDS: SODIUM CHLOR 0.9% 1000 ML INJ 1,000 ML IV SCH (21:46)
[2017-09-29 21:49] LABS: CHLORIDE 107 MEQ/L (98-107); SODIUM (NA) 140 MEQ/L (136-145)
[2017-09-29 21:52] LABS: CALCIUM 8.7 MG/DL (8.5-10.1)
[2017-09-29 21:53] LABS: ALBUMIN 3.3 GM/DL (3.4-5.0); BLOOD UREA NITROGEN 38 MG/DL (7-18); GLUCOSE,RANDOM 138 MG/DL (74-106)
[2017-09-29 21:56] LABS: ALT (GPT) 19 U/L (12-78); AST (GOT) 12 U/L (15-37); GLOMERULAR FILTRATION RATE 36 ML/MIN (>89)
[2017-09-29 21:57] LABS: PROTHROMBIN TIME - PATIENT 10.4 SEC (9.8-11.6)
[2017-09-29 21:58] LABS: TOTAL BILIRUBIN ADULT 0.2 MG/DL (0.2-1.0); TOTAL PROTEIN 7.3 GM/DL (6.4-8.2)
[2017-09-29 21:59] LABS: ALKALINE PHOSPHATASE 75 U/L (45-117)
[2017-09-29] MEDS ORDERED: ONDANSETRON HCL 4 MG/2 ML VIAL IV PUSH ONE (22:00)
[2017-09-29 22:02] VITALS: BP 160/82; PULSE 78; RESP 20; O2SAT 98
[2017-09-29] MEDS ORDERED: ACETAMINOPHEN 325 MG TAB PO PRN (23:15)
[2017-09-29] MEDS ORDERED: MAGNESIUM HYDROXIDE SUSP 30 ML CUP PO PRN (23:15)
[2017-09-29] MEDS ORDERED: SENNOSIDES 8.6 MG TAB PO PRN (23:15)
[2017-09-29] MEDS ORDERED: DEXTROSE 50% IN WATER 50 ML VIAL(D50) IV PUSH PRN (23:15)
[2017-09-29] MEDS ORDERED: ONDANSETRON HCL 4 MG/2 ML VIAL IVP PRN (23:15)
[2017-09-29] MEDS ORDERED: Vancomycin Consult Pharmacy 1 EA OTHER SCH (23:15)
[2017-09-29] MEDS ORDERED: ACETAMINOPHEN/HYDROcodone 325 MG/5 MG TAB PO PRN (23:15)
[2017-09-29] MEDS ORDERED: GLUCAGON 1 MG/ML VIAL OTHER PRN (23:15)
[2017-09-29] MEDS ORDERED: LACTULOSE SYRUP 20 GM/30 ML CUP PO PRN (23:15)
[2017-09-29] MEDS ORDERED: SODIUM CHLORIDE 0.9% FLUSH 10 ML FLUSH IV FLUSH PRN (23:15)
[2017-09-29] MEDS ORDERED: BISACODYL 10 MG SUPP RECTAL PRN (23:15)
[2017-09-30] VITALS (9 sets, daily range): BP systolic 143–181; BP diastolic 68–102; PULSE 67–112; RESP 16–32; TEMP 96–99.4; O2SAT 93–97
[2017-09-30] MEDS: MORPHINE SULFATE 2 MG/ML SYRINGE IV PUSH PRN ×3 (00:57→07:37)
[2017-09-30] MEDS: ALPRAZolam 0.25 MG TAB PO PRN ×2 (01:30→21:34)
[2017-09-30] MEDS: ALBUTEROL SULFATE 90 MCG/ACT HFA 8 GM INHALER INH PRN ×4 (04:01→21:36)
[2017-09-30] MEDS: SODIUM CHLOR 0.9% 1000 ML INJ 1,000 ML IV SCH ×2 (04:10→23:20)
[2017-09-30 06:39] LABS: AUTOMATED NEUTROPHIL # 5.9 TH/MM3 (1.8-7.7); BASOPHIL % 0.5 % (0.0-2.0); CHLORIDE 108 MEQ/L (98-107); EOSINOPHIL # 0.3 TH/MM3 (0-0.4); EOSINOPHIL % 3.6 % (0.0-4.0); HEMATOCRIT 34.4 % (39.0-51.0); HEMOGLOBIN 11.2 GM/DL (13.0-17.0); LYMPH % 19.5 % (9.0-44.0); LYMPHOCYTE # 1.7 TH/MM3 (1.0-4.8); MEAN CELL VOLUME 88.5 FL (80.0-100.0); MEAN CORPUSCULAR HEMOGLOBIN 28.8 PG (27.0-34.0); MEAN CORPUSCULAR HGB CONC 32.6 % (32.0-36.0); MEAN PLATELET VOLUME 7.8 FL (7.0-11.0); MONO % 8.9 % (0.0-8.0); MONOCYTE # 0.8 TH/MM3 (0-0.9); NEUT % 67.5 % (16.0-70.0); PLATELET COUNT 271 TH/MM3 (150-450); RED BLOOD COUNT 3.88 MIL/MM3 (4.50-5.90); RED CELL DISTRIBUTION WIDTH 13.6 % (11.6-17.2); SODIUM (NA) 141 MEQ/L (136-145); WHITE BLOOD COUNT 8.7 TH/MM3 (4.0-11.0)
[2017-09-30 06:46] LABS: ALBUMIN 2.8 GM/DL (3.4-5.0); BICARBONATE 26.8 MEQ/L (21.0-32.0); BLOOD UREA NITROGEN 39 MG/DL (7-18); GLUCOSE,RANDOM 221 MG/DL (74-106)
[2017-09-30 06:49] LABS: ALT (GPT) 17 U/L (12-78); AST (GOT) 10 U/L (15-37); GLOMERULAR FILTRATION RATE 36 ML/MIN (>89)
[2017-09-30 06:50] LABS: TOTAL BILIRUBIN ADULT 0.4 MG/DL (0.2-1.0); TOTAL PROTEIN 6.6 GM/DL (6.4-8.2)
[2017-09-30 06:51] LABS: ALKALINE PHOSPHATASE 67 U/L (45-117)
[2017-09-30] MEDS ORDERED: LEVEMIR SQ (07:52)
[2017-09-30] MEDS: INSULIN ASPART SUPPLEMENTAL SCALE SQ SCH ×4 (08:32→21:33)
[2017-09-30] MEDS: FLUTICASONE PROPIONATE 50 MCG/ACT 16 GM NASAL SPRAY EACH NARE SCH ×2 (08:33→21:36)
[2017-09-30] MEDS: CARVEDILOL 12.5 MG TAB PO SCH ×2 (08:33→21:35)
[2017-09-30] MEDS: GABAPENTIN 300 MG CAP PO SCH ×3 (08:33→17:33)
[2017-09-30] MEDS: hydrALAZINE HCL 50 MG TAB PO SCH ×3 (08:34→17:33)
[2017-09-30] MEDS: LISINOPRIL 20 MG TAB PO SCH ×2 (08:34→21:34)
[2017-09-30] MEDS: DOCUSATE SODIUM 50 MG/SENNA 8.6 MG TAB PO SCH ×2 (08:34→21:34)
[2017-09-30] MEDS: APIXABAN 2.5 MG TABLET PO SCH ×2 (08:34→21:34)
[2017-09-30] MEDS: MORPHINE SULFATE 15 MG CONTROLLED RELEASE TAB PO SCH ×2 (08:34→21:35)
[2017-09-30] MEDS: SODIUM CHLORIDE 0.9% FLUSH 10 ML FLUSH IV FLUSH SCH ×2 (08:38→21:37)
[2017-09-30] MEDS: VANCOMYCIN INJ 2,200 MG in SODIUM CHLORID 0.9% 500 ML INJ 500 ML IV SCH (12:20)
[2017-09-30] MEDS ORDERED: INSULIN DETEMIR 100 UNITS/ML VIAL SQ ONE (13:00)
--- NOTE | 2017-09-30 13:19 | HHI.HP ---
[facility] Physician NASEEM Lozano Admission Diagnosis Right leg cellulitis there is exuberant Diagnoses: (1) Diabetes mellitus Diagnosis: Principal (2) Diabetic ulcer of ankle Diagnosis: Principal (3) Cellulitis of right leg Diagnosis: Principal Travel History International Travel<30 Days: No Contact w/Intl Traveler <30 Da: No Traveled to Known Affected Are: No History of Present Illness Mr. Lyman is a 62-year-old male. He was admitted secondary to a right lower extremity infection. 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 He says prior to the onset of this infection he had been out of his insulin for one month. He reports no fever. He says just 3 days ago he did not have any signs of infection but did have a little bit of erythema. In the past 2 days he has developed blisters follow purulent material and drainage with signs of necrosis of the skin. Complaints when seen in our pain and he is worried about his blood sugars. Review of Systems Constitutional: DENIES: Fatigue, Fever, Chills Eyes: DENIES: Diplopia, Eye inflammation, Eye pain Ears, nose, mouth, throat: DENIES: Hearing loss, Vertigo, Nasal discharge Respiratory: DENIES: Cough, Wheezing, Shortness of breath Cardiovascular: DENIES: Chest pain, Palpitations, Syncope Gastrointestinal: DENIES: Abdominal pain, Black stools, Bloody stools Musculoskeletal: DENIES: Joint pain, Muscle aches, Stiffness, Joint Swelling Integumentary: DENIES: Abnormal pigmentation, Nail changes, Pruritus, Rash Hematologic/lymphatic: DENIES: Bruising, Lymphadenopathy Immunologic/allergic: DENIES: Eczema, Urticaria Neurologic: DENIES: Abnormal gait, Headache, Paresthesias Psychiatric: DENIES: Anxiety, Confusion, Hallucinations Past Family Social History Past Medical History Diabetes mellitus type 2 Osteoarthritis Gen. anxiety disorder Hyperlipidemia Hiatal hernia Headaches Hypertension History of myocardial infarction Sleep apnea Past Surgical History Left lower extremity amputation Reported Medications Reported Meds & Active Scripts Active Hydrocodone-Acetaminophen 10-325 mg Tab 1 Tab PO Q6H PRN Alprazolam 0.25 Mg Tab 0.25 Mg PO BID PRN Morphine ER (Morphine Sulfate) 15 Mg Tab 15 Mg PO BID Lisinopril 20 Mg Tab 20 Mg PO Q12HR Novolin R Inj (Insulin Human Regular) 1,000 Unit/10 Ml Vial 1-9 Units SQ ACHS Proair Hfa 8.5 GM Inh (Albuterol Sulfate) 90 Mcg/Act Aer 2 Puff INH Q4-6H PRN 108 mcg/actuation Fluticasone Nasal [place]bert 50 Mcg/Act Naspr 50 Mcg EACH NARE BID 50 mcg/spray [facility] 29GX1/2" 29G X 12Mm (Insulin Pen Needle) 1 Mis Mis 1 Box .ROUTE BID Lasix (Furosemide) 40 Mg Tab 40 Mg PO BID PRN True Metrix Glucose Test Strips (Blood Glucose Test Strips) 1 Kassandra Kassandra 1 Ea .ROUTE QID Eliquis (Apixaban) 2.5 Mg Tab 2.5 Mg PO BID Gabapentin 300 Mg Cap 300 Mg PO TID True Metrix Blood Glucose W/Device (Device) 1 Kit Kit Kit SQ DIRECTED Lipitor (Atorvastatin Calcium) 40 Mg Tab 40 Mg PO HS Coreg (Carvedilol) 12.5 Mg Tab 12.5 Mg PO Q12HR Reported Levemir Inj (Insulin Detemir) 1,000 unit/ 10 ML Vial 80 Units SQ BID Do not mix with any other Insulin. 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 Ordered Medications Administered Medications Medications (Trade) Dose Ordered Sig/Farhan Route PRN Reason Start Time Stop Time Status Last Admin Dose Admin Sodium Chloride 1,000 ml @ 70 mls/hr [id number] IV 09/29/17 21:30 09/30/17 04:10 Insulin Aspart (NovoLOG SUPPLEMENTAL SCALE) 1 ACHS SLIDING SCALE SQ 09/30/17 08:00 09/30/17 12:36 Senna/Docusate Sodium (Sofia-Colace) 1 tab BID PO 09/30/17 09:00 09/30/17 08:34 Albuterol Sulfate (Proair Hfa Inh) 2 puff Q4H PRN INH SHORTNESS OF BREATH 09/29/17 23:15 09/30/17 12:35 Alprazolam (Xanax) 0.25 mg BID PRN PO ANXIETY 09/29/17 23:15 09/30/17 01:30 Apixaban (Eliquis) 2.5 mg BID PO 09/30/17 09:00 09/30/17 08:34 Carvedilol (Coreg) 12.5 mg Q12HR PO 09/30/17 09:00 09/30/17 08:33 Gabapentin (Neurontin) 300 mg TID PO 09/30/17 09:00 09/30/17 12:21 Hydralazine HCl (Apresoline) 50 mg TID PO 09/30/17 09:00 09/30/17 12:20 Lisinopril (Prinivil) 20 mg Q12HR PO 09/30/17 09:00 09/30/17 08:34 Morphine Sulfate (Oramorph Sr) 15 mg BID PO 09/30/17 09:00 09/30/17 08:34 Vancomycin HCl 2200 mg/Sodium Chloride 522 ml @ 250 mls/hr DAILY@1200 IV 09/30/17 12:00 09/30/17 12:20 Family History Diabetes mellitus type 2 and coronary artery disease run in the patient's family Social History Alcohol Use: Yes (wine occ) Tobacco Use: No (second hand smoke from caregiver) Substance Use: No Physical Exam Vital Signs Vital Signs Date Time Temp Pulse Resp B/P (MAP) Pulse Ox O2 Delivery O2 Flow Rate FiO2 09/30/17 12:00 98.3 74 20 144/68 (93) 93 09/30/17 08:23 94 21 09/30/17 08:00 97.2 68 20 181/83 (115) 97 09/30/17 04:00 96.0 68 20 156/74 (101) 96 09/30/17 01:15 96 Nasal Cannula 2.00 09/30/17 00:30 96.2 67 20 172/94 (120) 96 09/30/17 00:04 09/29/17 22:02 78 20 160/82 (108) 98 Room Air 09/29/17 20:26 98.6 83 20 167/77 (107) 94 Room Air Physical Exam GENERAL: NAD, A&Ox3 HEAD: Normocephalic. NECK: Supple, trachea midline. No lymphadenopathy. EYES: No scleral icterus. No injection or drainage. CARDIOVASCULAR: Regular rate and rhythm without murmurs, gallops, or rubs. RESPIRATORY: Breath sounds equal bilaterally. No accessory muscle use. GASTROINTESTINAL: Abdomen soft, non-tender, nondistended. MUSCULOSKELETAL: No cyanosis, or edema. Left lower extremity amputation. Right lower extremity cellulitis with purulent material. SKIN: Warm and dry. NEURO: No focal neurological deficitis. Laboratory Laboratory Tests Test 09/29/17 21:30 09/30/17 05:30 White Blood Count 11.3 8.7 Red Blood Count 4.37 3.88 Hemoglobin 12.5 11.2 Hematocrit 37.9 34.4 Mean Corpuscular Volume 86.8 88.5 Mean Corpuscular Hemoglobin 28.7 28.8 Mean Corpuscular Hemoglobin Concent 33.0 32.6 Red Cell Distribution Width 13.3 13.6 Platelet Count 284 271 Mean Platelet Volume 7.5 7.8 Neutrophils (%) (Auto) 75.3 67.5 Lymphocytes (%) (Auto) 14.6 19.5 Monocytes (%) (Auto) 6.1 8.9 Eosinophils (%) (Auto) 3.4 3.6 Basophils (%) (Auto) 0.6 0.5 Neutrophils # (Auto) 8.4 5.9 Lymphocytes # (Auto) 1.7 1.7 Monocytes # (Auto) 0.7 0.8 Eosinophils # (Auto) 0.4 0.3 Basophils # (Auto) 0.1 0.0 CBC Comment DIFF FINAL DIFF FINAL Differential Comment Prothrombin Time 10.4 Prothromb Time International Ratio 1.0 Activated Partial Thromboplast Time 26.5 Blood Urea Nitrogen 38 39 Creatinine 1.90 1.90 Random Glucose 138 221 Total Protein 7.3 6.6 Albumin 3.3 2.8 Calcium Level 8.7 8.0 Alkaline Phosphatase 75 67 Aspartate Amino Transf (AST/SGOT) 12 10 Alanine Aminotransferase (ALT/SGPT) 19 17 Total Bilirubin 0.2 0.4 Sodium Level 140 141 Potassium Level 4.0 4.3 Chloride Level 107 108 Carbon Dioxide Level 27.0 26.8 Anion Gap 6 6 Estimat Glomerular Filtration Rate 36 36 Date/Time Source Procedure Growth Status 09/29/17 21:50 Blood Peripheral Aerobic Blood Culture Pending Received 09/29/17 21:50 Blood Peripheral Anaerobic Blood Culture Pending Received 09/29/17 21:30 Wound Leg Gram Stain - Final Resulted 09/29/17 21:30 Wound Leg Wound Culture Pending Resulted Result Diagram: 09/30/17 0530 09/30/17 0530 Caprini VTE Risk Assessment Caprini VTE Risk Assessment: No/Low Risk (score <= 1) Caprini Risk Assessment Model Point Value = 1 Point Value = 2 Point Value = 3 Point Value = 5 Age 41-60 Minor surgery BMI > 25 kg/m2 Swollen legs Varicose veins or History of unexplained or recurrent spontaneous Oral contraceptives or hormone replacement Sepsis (< 1 month) Serious lung disease, including pneumonia (< 1 month) Abnormal pulmonary function Acute myocardial infarction Congestive heart failure (< 1 month) History of inflammatory bowel disease Medical patient at bed rest Age 61-74 Arthroscopic surgery Major open surgery (> 45 min) Laparoscopic surgery (> 45 min) Malignancy Confined to bed (> 72 hours) Immobilizing plaster cast Central venous access Age >= 75 History of VTE Family history of VTE Factor V Leiden Prothrombin [id number] Lupus anticoagulant Anticardiolipin antibodies Elevated serum homocysteine Heparin-induced thrombocytopenia Other congenital or acquired thrombophilia Stroke (< 1 month) Elective arthroplasty Hip, pelvis, or leg fracture Acute spinal cord injury (< 1 month) Prophylaxis Regimen Total Risk Factor Score Risk Level Prophylaxis Regimen 0-1 Low Early ambulation 2 Moderate Order ONE of the following: *Sequential Compression Device (SCD) *Heparin 5000 units SQ BID 3-4 Higher Order ONE of the following medications: *Heparin 5000 units SQ TID *Enoxaparin/Lovenox 40 mg SQ daily (WT < 150 kg, CrCl > 30 mL/min) *Enoxaparin/Lovenox 30 mg SQ daily (WT < 150 kg, CrCl > 10-29 mL/min) *Enoxaparin/Lovenox 30 mg SQ BID (WT < 150 kg, CrCl > 30 mL/min) AND/OR *Sequential Compression Device (SCD) 5 or more Highest Order ONE of the following medications: *Heparin 5000 units SQ TID (Preferred with Epidurals) *Enoxaparin/Lovenox 40 mg SQ daily (WT < 150 kg, CrCl > 30 mL/min) *Enoxaparin/Lovenox 30 mg SQ daily (WT < 150 kg, CrCl > 10-29 mL/min) *Enoxaparin/Lovenox 30 mg SQ BID (WT < 150 kg, CrCl > 30 mL/min) AND *Sequential Compression Device (SCD) Assessment and Plan Problem List: (1) Cellulitis of right leg ICD Code: L03.115 - Cellulitis of right lower limb Status: Acute (2) Diabetes mellitus ICD Code: E11.9 - Diabetes mellitus Status: Chronic Assessment and Plan 62-year-old male admitted secondary to right lower extremity cellulitis Right lower extremity cellulitis This patient has high risk for complications Admitted for IV antibiotics, Vancomycin continued Cultures have been obtained in the ER Monitor cultures Monitor status of leg If leg is improving and once cultures are resulted consider transition to by mouth treatment if possible Diabetes mellitus type 2 Follow blood sugars Insulin sliding scale Diabetic diet Continue twice a day insulin detemir Hypertension Continue baseline treatment Follow blood pressures Adjust treatments as needed Hyperlipidemia Continue present treatment Follow as an outpatient Osteoarthritis Gen. anxiety disorder Hiatal hernia Headaches History of myocardial infarction Sleep apnea Asymptomatic No changes to baseline treatments DVT prophylaxis SCDs contraindicated No Lovenox due to renal function Heparin Physician Certification 2 Midnight Certification Type: Admission for Inpatient Services Order for Inpatient Services The services are ordered in accordance with Medicare regulations or non- Medicare payer requirements, as applicable. In the case of services not specified as inpatient-only, they are appropriately provided as inpatient services in accordance with the 2-midnight benchmark. Estimated LOS (days): 3 days is the estimated time the patient will need to remain in the hospital, assuming treatment plan goals are met and no additional complications. Post-Hospital Plan: Lui Carmona MD Sep 30, 2017 13:19
[2017-09-30] MEDS: ACETAMINOPHEN/HYDROcodone 325 MG/10 MG TAB PO PRN ×2 (15:28→21:36)
[2017-09-30] MEDS ORDERED: HEPARIN SODIUM - SQ 10,000 UNITS/ML VIAL SQ SCH (21:00)
[2017-09-30] MEDS: INSULIN DETEMIR 100 UNITS/ML VIAL SQ SCH (21:33)
[2017-09-30] MEDS: ATORVASTATIN 40 MG TAB PO SCH (21:34)
[2017-10-01 00:22] VITALS: BP 147/64; PULSE 76; RESP 18; TEMP 97; O2SAT 91
[2017-10-01] MEDS: ALBUTEROL SULFATE 90 MCG/ACT HFA 8 GM INHALER INH PRN ×3 (04:41→22:00)
[2017-10-01] MEDS: ACETAMINOPHEN/HYDROcodone 325 MG/10 MG TAB PO PRN ×3 (05:01→21:59)
[2017-10-01 07:24] LABS: AUTOMATED NEUTROPHIL # 7.7 TH/MM3 (1.8-7.7); BASOPHIL % 0.3 % (0.0-2.0); EOSINOPHIL # 0.4 TH/MM3 (0-0.4); EOSINOPHIL % 4.1 % (0.0-4.0); HEMATOCRIT 34.5 % (39.0-51.0); HEMOGLOBIN 11.5 GM/DL (13.0-17.0); LYMPH % 13.6 % (9.0-44.0); LYMPHOCYTE # 1.4 TH/MM3 (1.0-4.8); MEAN CORPUSCULAR HEMOGLOBIN 29.4 PG (27.0-34.0); MEAN CORPUSCULAR HGB CONC 33.4 % (32.0-36.0); MEAN PLATELET VOLUME 7.5 FL (7.0-11.0); MONO % 7.3 % (0.0-8.0); MONOCYTE # 0.8 TH/MM3 (0-0.9); NEUT % 74.7 % (16.0-70.0); PLATELET COUNT 243 TH/MM3 (150-450); RED BLOOD COUNT 3.92 MIL/MM3 (4.50-5.90); RED CELL DISTRIBUTION WIDTH 13.3 % (11.6-17.2); WHITE BLOOD COUNT 10.3 TH/MM3 (4.0-11.0)
[2017-10-01 07:35] LABS: CHLORIDE 108 MEQ/L (98-107); SODIUM (NA) 141 MEQ/L (136-145)
[2017-10-01 07:42] LABS: ALBUMIN 2.8 GM/DL (3.4-5.0); CALCIUM 7.9 MG/DL (8.5-10.1); GLUCOSE,RANDOM 130 MG/DL (74-106)
[2017-10-01 07:43] LABS: BLOOD UREA NITROGEN 40 MG/DL (7-18)
[2017-10-01 07:46] LABS: ALT (GPT) 17 U/L (12-78); AST (GOT) 10 U/L (15-37); GLOMERULAR FILTRATION RATE 44 ML/MIN (>89)
[2017-10-01 07:47] LABS: TOTAL BILIRUBIN ADULT 0.4 MG/DL (0.2-1.0); TOTAL PROTEIN 6.9 GM/DL (6.4-8.2)
[2017-10-01 07:49] LABS: ALKALINE PHOSPHATASE 66 U/L (45-117)
[2017-10-01 08:00] VITALS: BP 131/64; PULSE 68; RESP 15; TEMP 97.6; O2SAT 97
[2017-10-01] MEDS: INSULIN ASPART SUPPLEMENTAL SCALE SQ SCH ×4 (08:06→22:01)
[2017-10-01] MEDS: FLUTICASONE PROPIONATE 50 MCG/ACT 16 GM NASAL SPRAY EACH NARE SCH ×2 (09:00→21:57)
[2017-10-01] MEDS: INSULIN DETEMIR 100 UNITS/ML VIAL SQ SCH ×2 (09:01→22:00)
[2017-10-01] MEDS: GABAPENTIN 300 MG CAP PO SCH ×3 (09:01→17:39)
[2017-10-01] MEDS: hydrALAZINE HCL 50 MG TAB PO SCH ×3 (09:02→17:39)
[2017-10-01] MEDS: DOCUSATE SODIUM 50 MG/SENNA 8.6 MG TAB PO SCH ×2 (09:02→21:58)
[2017-10-01] MEDS: CARVEDILOL 12.5 MG TAB PO SCH ×2 (09:02→21:57)
[2017-10-01] MEDS: APIXABAN 2.5 MG TABLET PO SCH ×2 (09:03→21:58)
[2017-10-01] MEDS: MORPHINE SULFATE 15 MG CONTROLLED RELEASE TAB PO SCH ×2 (09:04→21:59)
[2017-10-01] MEDS: LISINOPRIL 20 MG TAB PO SCH ×2 (09:04→21:58)
[2017-10-01] MEDS: SODIUM CHLORIDE 0.9% FLUSH 10 ML FLUSH IV FLUSH SCH ×2 (09:06→21:57)
--- NOTE | 2017-10-01 11:56 | HHI.PR ---
Subjective Remarks Nursing denies any deterioration since last night. Patient thinks his pain is better since admission. Objective Vital Signs Date Time Temp Pulse Resp B/P (MAP) Pulse Ox O2 Delivery O2 Flow Rate FiO2 10/01/17 08:00 97.6 68 15 131/64 (86) 97 10/01/17 06:01 18 10/01/17 05:03 10/01/17 00:22 97.0 76 18 147/64 (91) 91 09/30/17 22:35 20 09/30/17 21:16 96.3 67 16 145/71 (95) 96 09/30/17 20:00 95 21 09/30/17 15:56 96.7 71 20 143/76 (98) 94 09/30/17 12:00 98.3 74 20 144/68 (93) 93 I/O 09/30/17 09/30/17 09/30/17 10/01/17 10/01/17 10/01/17 07:00 15:00 23:00 07:00 15:00 23:00 Intake Total 2062 ml 760 ml 1000 ml Output Total 250 ml 1450 ml 900 ml Balance 1812 ml -690 ml 100 ml Intake Oral 720 ml 760 ml IV Total 1342 ml 1000 ml Output Urine Total 250 ml 1450 ml 900 ml # Voids 1 # Bowel Movements 0 0 Result Diagram: 10/01/17 0640 10/01/17 0640 Objective Remarks Lying in bed, sleeping, easily woken Right lower extremity with dressing, dressing removed and see obvious open wounds one is about a golf ball size in diameter then was about a quarter size, no weeping noted, very mild limited erythema surrounding both open wounds, no purulence noted A/P Assessment and Plan Assessment and Plan 62-year-old male admitted secondary to right lower extremity cellulitis Right lower extremity cellulitis Admitted for IV antibiotics, Vancomycin continued, will consider cefepime while inpat, anticipate switch to doxycycline upon discharge Supportive wound care, improving, monitor daily with boundaries Acute on possible chronic renal impairment -Continue IV fluids, improving, BMP in a.m. Diabetes mellitus type 2 Follow blood sugars Insulin sliding scale Diabetic diet Continue twice a day insulin detemir Hypertension Continue baseline treatment Follow blood pressures Adjust treatments as needed Hyperlipidemia Continue present treatment Follow as an outpatient Osteoarthritis Gen. anxiety disorder Hiatal hernia Headaches History of myocardial infarction Sleep apnea Asymptomatic No changes to baseline treatments DVT prophylaxis SCDs contraindicated No Lovenox due to renal function Heparin Bassem Garcia MD Oct 01, 2017 11:56
[2017-10-01] MEDS ORDERED: MISCELLANEOUS PHARMACY INFORMATION OTHER ONE (12:00)
[2017-10-01] MEDS: VANCOMYCIN INJ 2,200 MG in SODIUM CHLORID 0.9% 500 ML INJ 500 ML IV SCH (12:23)
[2017-10-01 14:00] VITALS: BP 151/79; PULSE 82; RESP 16; TEMP 96.7; O2SAT 94
[2017-10-01] MEDS: CEFEPIME 2000 MG/NS 100 ML IV SCH ×2 (14:21)
[2017-10-01] MEDS: SODIUM CHLOR 0.9% 1000 ML INJ 1,000 ML IV SCH (16:24)
[2017-10-01 20:24] VITALS: BP 190/73; PULSE 91; RESP 22; TEMP 98.1; O2SAT 91
[2017-10-01 20:26] VITALS: O2SAT 92
[2017-10-01] MEDS: ATORVASTATIN 40 MG TAB PO SCH (21:57)
[2017-10-01] MEDS: ALPRAZolam 0.25 MG TAB PO PRN (21:57)
[2017-10-01 22:47] VITALS: O2SAT 95
[2017-10-01] MEDS ORDERED: FUROSEMIDE 40 MG TAB PO ONE (23:00)
[2017-10-02 00:36] VITALS: BP 119/53; PULSE 75; RESP 18; TEMP 97.3; O2SAT 95
[2017-10-02] MEDS: CEFEPIME 2000 MG/NS 100 ML IV SCH ×4 (00:50→13:52)
[2017-10-02] MEDS: SODIUM CHLOR 0.9% 1000 ML INJ 1,000 ML IV SCH (04:35)
[2017-10-02 06:31] LABS: CALCIUM 8.2 MG/DL (8.5-10.1)
[2017-10-02 06:32] LABS: BICARBONATE 26.6 MEQ/L (21.0-32.0)
[2017-10-02 06:35] LABS: CREATININE 1.6 MG/DL (0.60-1.30)
[2017-10-02 08:00] VITALS: BP 141/66; PULSE 80; RESP 16; TEMP 98.4; O2SAT 97
[2017-10-02] MEDS: GABAPENTIN 300 MG CAP PO SCH ×3 (08:20→17:19)
[2017-10-02] MEDS: CARVEDILOL 12.5 MG TAB PO SCH ×2 (08:21→21:41)
[2017-10-02] MEDS: MORPHINE SULFATE 15 MG CONTROLLED RELEASE TAB PO SCH ×2 (08:21→21:41)
[2017-10-02] MEDS: APIXABAN 2.5 MG TABLET PO SCH ×2 (08:21→21:42)
[2017-10-02] MEDS: hydrALAZINE HCL 50 MG TAB PO SCH ×3 (08:22→17:19)
[2017-10-02] MEDS: LISINOPRIL 20 MG TAB PO SCH ×2 (08:22→21:41)
[2017-10-02] MEDS: DOCUSATE SODIUM 50 MG/SENNA 8.6 MG TAB PO SCH ×2 (08:22→21:40)
[2017-10-02] MEDS: FLUTICASONE PROPIONATE 50 MCG/ACT 16 GM NASAL SPRAY EACH NARE SCH ×2 (08:22→21:37)
[2017-10-02] MEDS: SODIUM CHLORIDE 0.9% FLUSH 10 ML FLUSH IV FLUSH SCH ×2 (08:23→21:42)
[2017-10-02] MEDS: ALBUTEROL SULFATE 90 MCG/ACT HFA 8 GM INHALER INH PRN ×2 (08:24→21:38)
[2017-10-02] MEDS: INSULIN DETEMIR 100 UNITS/ML VIAL SQ SCH ×2 (08:24→21:48)
[2017-10-02] MEDS: INSULIN ASPART SUPPLEMENTAL SCALE SQ SCH ×4 (08:24→21:47)
[2017-10-02] MEDS ORDERED: FUROSEMIDE 20 MG/2 ML VIAL IV PUSH ONE (11:00)
--- NOTE | 2017-10-02 11:24 | HHI.PR ---
Subjective Remarks Nursing reports that the patient is coughing a good bit. Patient says that his right leg is still edematous, says at baseline it is not edematous. Says that he does not have a pre-existing history of congestive heart failure. Says he feels bad and has had subjective chills and fevers since last night. Objective Vital Signs Date Time Temp Pulse Resp B/P (MAP) Pulse Ox O2 Delivery O2 Flow Rate FiO2 10/02/17 08:00 98.4 80 16 141/66 (91) 97 10/02/17 04:37 10/02/17 00:36 97.3 75 18 119/53 (75) 95 10/01/17 22:59 22 10/01/17 22:59 22 10/01/17 22:47 95 Nasal Cannula 2.00 10/01/17 20:26 92 21 10/01/17 20:24 98.1 91 22 190/73 (112) 91 10/01/17 14:00 96.7 82 16 151/79 (103) 94 I/O 10/01/17 10/01/17 10/01/17 10/02/17 10/02/17 10/02/17 07:00 15:00 23:00 07:00 15:00 23:00 Intake Total 1000 ml 1200 ml 500 ml 240 ml Output Total 900 ml 200 ml Balance 100 ml -200 ml 1200 ml 500 ml 240 ml Intake Oral 240 ml IV Total 1000 ml 1200 ml 500 ml Output Urine Total 900 ml 200 ml # Bowel Movements 0 Result Diagram: 10/01/17 0640 10/02/17 0545 Objective Remarks Coarse breath sounds bilaterally with no focal crackles rhonchi or rales unchanged wound from yesterday; Right lower extremity with dressing, dressing removed and see obvious open wounds one is about a golf ball size in diameter then was about a quarter size, no weeping noted, very mild limited erythema surrounding both open wounds, no purulence noted A/P Assessment and Plan Assessment and Plan 62-year-old male admitted secondary to right lower extremity cellulitis Right lower extremity cellulitis growing pseudomonas, stopping vancomycin, continue cefepime. starting Dakin's solution with maxsorb AG. RLE edema - giving lasix IV x1, starting po tomorrow, obtaining echo Worsening cough - CXR ordered Diabetes mellitus type 2 Follow blood sugars Insulin sliding scale Diabetic diet Continue twice a day insulin detemir Hypertension Continue baseline treatment Follow blood pressures Adjust treatments as needed Hyperlipidemia Continue present treatment Follow as an outpatient Osteoarthritis Gen. anxiety disorder Hiatal hernia Headaches History of myocardial infarction Sleep apnea Asymptomatic No changes to baseline treatments DVT prophylaxis SCDs contraindicated No Lovenox due to renal function Bassem Nguyen MD Oct 02, 2017 11:24
--- NOTE | 2017-10-02 11:37 | RADRPT ---
EXAM DATE/TIME: 10/02/2017 10:57 [facility] COMPARISON: No previous studies available for comparison. INDICATIONS : Cough. MEDICAL HISTORY : Cerebrovascular disease. Cardiovascular disease. Hypertension. Diabetes. Renal failure. SURGICAL HISTORY : Left lower leg amputation. ENCOUNTER: Initial ACUITY: 1 day PAIN SCORE: 0/10 LOCATION: Bilateral chest FINDINGS: AP and lateral views of the chest were obtained. Both views are Midinspiratory with crowding of the l angelica vasculature. There is patchy opacity at both lung bases with no focal consolidation or effusion. The heart size is at the upper limits of normal with no perihilar edema. The bony thorax is intact. CONCLUSION: Midinspiratory exam with apparent atelectasis of the lung bases. Shiva Bullard MD on October 02, 2017 at 11:34 Board Certified Radiologist. This report was verified electronically.
[2017-10-02] MEDS: VANCOMYCIN INJ 2,200 MG in SODIUM CHLORID 0.9% 500 ML INJ 500 ML IV SCH (11:42)
[2017-10-02 12:00] VITALS: BP 135/62; PULSE 76; RESP 18; TEMP 98.6; O2SAT 92
[2017-10-02] MEDS ORDERED: SODIUM HYPOCHLORITE 0.125% 500 ML BTL TOPICAL SCH (12:00)
[2017-10-02 16:00] VITALS: BP 140/68; PULSE 67; RESP 16; TEMP 96.5; O2SAT 96
[2017-10-02 20:00] VITALS: BP 138/65; PULSE 69; RESP 18; TEMP 97.7; O2SAT 97
[2017-10-02 20:15] VITALS: O2SAT 97
[2017-10-02] MEDS: ATORVASTATIN 40 MG TAB PO SCH (21:40)
[2017-10-02] MEDS: ALPRAZolam 0.25 MG TAB PO PRN (21:48)
[2017-10-03] VITALS: BP 150/67; PULSE 78; RESP 16; TEMP 97.2; O2SAT 93
[2017-10-03] MEDS: CEFEPIME 2000 MG/NS 100 ML IV SCH ×2 (01:08)
[2017-10-03] MEDS: ALBUTEROL SULFATE 90 MCG/ACT HFA 8 GM INHALER INH PRN ×2 (03:17→07:59)
[2017-10-03] MEDS: INSULIN DETEMIR 100 UNITS/ML VIAL SQ SCH (07:57)
[2017-10-03] MEDS: MORPHINE SULFATE 15 MG CONTROLLED RELEASE TAB PO SCH (07:57)
[2017-10-03] MEDS: DOCUSATE SODIUM 50 MG/SENNA 8.6 MG TAB PO SCH (07:57)
[2017-10-03] MEDS: CARVEDILOL 12.5 MG TAB PO SCH (07:57)
[2017-10-03] MEDS: GABAPENTIN 300 MG CAP PO SCH (07:58)
[2017-10-03] MEDS: FLUTICASONE PROPIONATE 50 MCG/ACT 16 GM NASAL SPRAY EACH NARE SCH (07:58)
[2017-10-03] MEDS: LISINOPRIL 20 MG TAB PO SCH (07:58)
[2017-10-03] MEDS: APIXABAN 2.5 MG TABLET PO SCH (07:59)
[2017-10-03 08:00] VITALS: BP 130/60; PULSE 70; RESP 16; TEMP 97.1; O2SAT 96
[2017-10-03] MEDS: INSULIN ASPART SUPPLEMENTAL SCALE SQ SCH (08:00)
[2017-10-03 08:57] VITALS: RESP 20
[2017-10-03] MEDS ORDERED: FUROSEMIDE 40 MG TAB PO SCH (09:00)
[2017-10-03] MEDS: SODIUM CHLORIDE 0.9% FLUSH 10 ML FLUSH IV FLUSH SCH (09:00)
[2017-10-03] MEDS ORDERED: LEVOFLOXACIN 250 MG TAB PO SCH (11:00)
[2017-10-03] MEDS ORDERED: LEVA250T14 PO (11:14)
--- NOTE | 2017-10-03 11:15 | HHI.DCPOC ---
Discharge Care Plan Diagnosis: (1) Cellulitis of right leg Goals to Promote Your Health * To prevent worsening of your condition and complications * To maintain your health at the optimal level Directions to Meet Your Goals Take your medications as prescribed Follow your dietary instruction Follow activity as directed Keep your appointments as scheduled Take your immunizations and boosters as scheduled If your symptoms worsen call your PCP, if no PCP go to Urgent Care Center or Emergency Room Smoking is Dangerous to Your Health. Avoid second hand smoke Call the 24-hour hour crisis hotline for domestic abuse at [facility] Oct 03, 2017 11:15
--- NOTE | 2017-10-03 11:17 | HHI.FF ---
Face to Face Verification Diagnosis: (1) Cellulitis of right leg Physical Therapy Order: Evaluate and Treat, Improve ambulation, Strength and gait training Home Health Nursing Order: Medical education Diabetic education Wound care and dressing changes Instructions: Wound dressings every other day with Dakin solution and Maxorb AG. I have seen patient Josep Lyman on 10/03/17. My clinical findings support the need for the requested home health care services because: Ltd mobility - disease progression Deconditioned w/ increased weakness Limited ability to care for self I certify that my clinical findings support that this patient is homebound because: Unsteady gait/balance [facility] Oct 03, 2017 11:17
--- NOTE | 2017-10-03 11:26 | HHI.DS ---
Discharge Summary Admission Date Sep 29, 2017 at 23:13 Discharge Date: Oct 03, 2017 Admitting Diagnosis Right leg cellulitis there is exuberant (1) Cellulitis of right leg ICD Code: L03.115 - Cellulitis of right lower limb Status: Acute (2) Diabetes mellitus ICD Code: E11.9 - Diabetes mellitus Status: Chronic Procedures None Brief History - From Admission Mr. Lyman is a 62-year-old male. He was admitted secondary to a right lower extremity infection. 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 He says prior to the onset of this infection he had been out of his insulin for one month. He reports no fever. He says just 3 days ago he did not have any signs of infection but did have a little bit of erythema. In the past 2 days he has developed blisters follow purulent material and drainage with signs of necrosis of the skin. Complaints when seen in our pain and he is worried about his blood sugars. CBC/BMP: 10/01/17 0640 10/02/17 0545 Significant Findings Laboratory Tests Test 10/01/17 06:40 10/02/17 05:45 Red Blood Count 3.92 MIL/MM3 (4.50-5.90) Hemoglobin 11.5 GM/DL (13.0-17.0) Hematocrit 34.5 % (39.0-51.0) Neutrophils (%) (Auto) 74.7 % (16.0-70.0) Eosinophils (%) (Auto) 4.1 % (0.0-4.0) Blood Urea Nitrogen 40 MG/DL (7-18) 39 MG/DL (7-18) Creatinine 1.60 MG/DL (0.60-1.30) 1.60 MG/DL (0.60-1.30) Random Glucose 130 MG/DL (74-106) 215 MG/DL (74-106) Albumin 2.8 GM/DL (3.4-5.0) Calcium Level 7.9 MG/DL (8.5-10.1) 8.2 MG/DL (8.5-10.1) Aspartate Amino Transf (AST/SGOT) 10 U/L (15-37) Chloride Level 108 MEQ/L (98-107) 112 MEQ/L (98-107) Estimat Glomerular Filtration Rate 44 ML/MIN (>89) 44 ML/MIN (>89) Imaging Last Impressions Chest X-Ray 10/02/17 0000 Signed Impressions: Service Date/Time: Monday, October 02, 2017 10:57 - CONCLUSION: Midinspiratory exam with apparent atelectasis of the lung bases. Shiva Bullard MD PE at Discharge GENERAL: Well-developed, well-nourished, in no acute distress. alert and orientated HEENT: Head is normocephalic without any lesions or masses noted. Facial features are symmetric. Eyes: Extraocular muscles are intact. Conjunctivae were clear. NECK: Supple without any masses. Trachea midline no deviation. No JVD, CARDIAC: Regular rhythm, regular rate. S1/S2 are heard. No murmurs gallops or rubs. LUNGS: Clear to auscultation bilaterally. No wheeze, rhonchi or rales. No use of accessory muscles on inspiration or expiration. ABDOMEN: Soft, nontender. Nondistended. Bowel sounds heard in all 4 quadrants. No organomegaly or masses. Negative rebound, negative guarding EXTREMITIES: No edema, pulses are equal bilaterally. No cyanosis or clubbing. Patient has have a left below the knee amputation NEUROLOGY: Mood and affect appear appropriate. Cranial nerves II through XII grossly intact. Moving all extremities, speech is clear RIGHT LOWER EXTREMITY: There does appear to be a ulcer/wound noted on the right medial tibial area with clean edges, no exudates, healing nicely, without any erythema or cellulitis Hospital Course 62-year-old male with known history of diabetes, lower extremity wounds who presented to the emergency department initially because of right lower extremity wound infection/cellulitis. Patient does have history of previous diabetic wound developing osteomyelitis requiring a left below the knee amputation. Because of that reason patient was concerned about the new wound that is experiencing. He is to go to the wound care facility, however due to position problem he is not been followed by them lately. Patient came to emergency department and was found to have a wound in which the patient states that it worsened by developing blisters with purulent drainage and necrosis of the skin. ER physician documentation indicates the patient did have right lower extremity cellulitis with serosanguineous drainage. There is no indication of any necrosis. Patient had workup done emergency department is no indication of any sepsis. Patient had cultures performed, and patient was recommended admission to the hospital on vancomycin, cefepime. Culture did come back showing Pseudomonas which was pansensitive. Vancomycin was discontinued, and subsequently cefepime discontinued and patient started on Levaquin 250 mg daily secondary to patient's chronic kidney disease. Patient had wound care with Dakin solution and Maxorb AG. Wound appears to be healing nicely. No signs of infection at this time. Clean edges. Minimal drainage noted on bandages. Patient was instructed to follow-up with primary care doctor and or call wound care center to make an appointment. During the patient 's stay he did have other symptoms that developed with cough with chest x-ray was performed which did not indicate any acute abnormality, no signs of pulmonary edema there were some atelectasis in the lung bases. Incentive spirometry was recommended. Patient continued indicate that his right lower extremity appear to be more swollen than usual. Patient was continued on his Lasix, fluid restriction was started, patient has had previous echocardiograms done in the hospital in 2016 which showed normal function with ejection fraction 55-60%. No indications of any diastolic dysfunction or increased PA peak pressure. Echocardiogram was requested, which can be followed up by primary medical doctor. Patient is clinically stable at this time and t will be discharged home with home health care for physical therapy, nursing care, wound care. Pt Condition on Discharge: Stable Discharge Disposition: Disch w/ Home Health Serv Discharge Time: > 30 minutes Discharge Instructions DIET: Follow Instructions for: Diabetic Diet Activities you can perform: Weight Bearing as Hilaria Follow up Referrals: PCP Follow-up - 1 Week New Medications: Levofloxacin (Levaquin) 250 Mg Tablet 250 MG PO DAILY for Infection for 7 Days, #7 TAB Continued Medications: Albuterol 8.5 GM Inh (Proair Hfa 8.5 GM Inh) 90 Mcg/Act Aer 2 PUFF INH Q4-6H PRN for SHORTNESS OF BREATH, #1 INHALER 0 Refills 108 mcg/actuation Albuterol 8.5 GM Inh (Proair Hfa 8.5 GM Inh) 90 Mcg/Act Aer 2 PUFF INH Q4-6H PRN for SHORTNESS OF BREATH, #1 INHALER 3 Refills 108 mcg/actuation Alprazolam (Alprazolam) 0.25 Mg Tab 0.25 MG PO BID PRN for ANXIETY, #60 TAB 1 Refill Apixaban (Eliquis) 2.5 Mg Tab 2.5 MG PO BID for Blood Clot Prevention, #60 TAB 6 Refills Atorvastatin (Lipitor) 40 Mg Tab 40 MG PO HS for Cholesterol Management, #90 TAB 1 Refill Carvedilol (Coreg) 12.5 Mg Tab 12.5 MG PO Q12HR, #60 TAB 12 Refills Fluticasone Nasal Sayre (Fluticasone Nasal Sayre) 50 Mcg/Act Naspr 50 MCG EACH NARE BID for Allergy Management, #1 BOTTLE 1 Refill 50 mcg/spray Furosemide (Lasix) 40 Mg Tab 40 MG PO BID PRN for EDEMA, #180 TAB 1 Refill Gabapentin (Gabapentin) 300 Mg Cap 300 MG PO TID for Pain Management, #90 CAP 6 Refills Hydralazine HCl (Hydralazine HCl) 25 Mg Tablet 50 MG PO TID for Blood Pressure Management, #90 TAB 0 Refills Hydrocodone-Acetaminophen (Hydrocodone-Acetaminophen) 10-325 mg Tab 1 TAB PO Q6H PRN for PAIN, #120 TAB 0 Refills Insulin Detemir Inj (Levemir Inj) 1,000 unit/ 10 ML Vial 80 UNITS SQ BID for Blood Sugar Management, VIAL 0 Refills Do not mix with any other Insulin. Insulin Human Regular Inj (Novolin R Inj) 1,000 Unit/10 Ml Vial 1-9 UNITS SQ ACHS for Blood Sugar Management, #10 ML 1 Refill Max dose at bedtime:( )units; sugars less than 70,(0) units; sugars 150-199,(1)unit; sugars 200-249,(3)units; sugars 250-299,(5) units; sugars 300-349,(7)units; sugars greater than 349,(9)units Insulin Human Regular Inj (Novolin R Inj) 1,000 Unit/10 Ml Vial 1-9 UNITS SQ ACHS for Blood Sugar Management, #10 ML 3 Refills Lisinopril (Lisinopril) 20 Mg Tab 20 MG PO Q12HR, #90 TAB 1 Refill Morphine ER (Morphine ER) 15 Mg Tab 15 MG PO BID for Pain Management, #60 TAB 0 Refills True Metrix Glucose Test Strips (True Metrix Glucose Test Strips) 1 Kassandra Kassandra 1 EA .ROUTE QID for Blood Sugar Management, #[address] Refills Capo Mcdonald Oct 03, 2017 11:26
[2017-10-03] MEDS ORDERED: PHARMACY ORDERED LAB ONE (11:45)
[2017-10-03] MEDS: hydrALAZINE HCL 50 MG TAB PO SCH (11:46)
--- NOTE | 2017-10-03 19:32 | ECHRPT ---
Indication: HEART FAILURE CONCLUSIONS The left ventricular systolic function is hyperdynamic with an estimated ejection fraction in the ra nge of 65- 70%. Normal left ventricular size. Mild concentric left ventricular hypertrophy. No regional wall motion abnormalities are present. BP: 150 / 67 HR: 94 Rhythm: Sinus MEASUREMENTS (Male / Female) Normal Values Technical Quality:Fair 2D ECHO LV Diastolic Diameter PLAX 5.2 cm 4.2 - 5.9 / 3.9 - 5.3 cm LV Systolic Diameter PLAX 3.3 cm IVS Diastolic Thickness 1.3 cm 0.6 - 1.0 / 0.6 - 0.9 cm LVPW Diastolic Thickness 1.3 cm 0.6 - 1.0 / 0.6 - 0.9 cm LV Relative Wall Thickness 0.5 RV Internal Dim ED PLAX 2.7 cm LVOT Diameter 2.0 cm LA Systolic Diameter LX 4.0 cm 3.0 - 4.0 / 2.7 - 3.8 cm M-MODE Aortic Root Diameter MM 3.1 cm AV Cusp Separation MM 2.0 cm DOPPLER AV Peak Velocity 136.0 cm/s AV Peak Gradient 7.4 mmHg LVOT Peak Velocity 112.0 cm/s LVOT Peak Gradient 5.0 mmHg AV Area Cont Eq pk 2.6 cm MV Area PHT 3.1 cm Mitral E Point Velocity 101.0 cm/s Mitral A Point Velocity 80.9 cm/s Mitral E to A Ratio 1.2 LV E' Lateral Velocity 6.3 cm/s Mitral E to LV E' Lateral Ratio 15.9 LV E' Septal Velocity 8.5 cm/s Mitral E to LV E' Septal Ratio 11.9 TR Peak Velocity 262.0 cm/s TR Peak Gradient 27.5 mmHg Right Atrial Pressure 10.0 mmHg Pulmonary Artery Systolic Pressu 37.5 mmHg Right Ventricular Systolic Press 37.5 mmHg PV Peak Velocity 113.0 cm/s PV Peak Gradient 5.1 mmHg FINDINGS LEFT VENTRICLE The left ventricular systolic function is hyperdynamic with an estimated ejection fraction in the ra nge of 65- 70%. Normal left ventricular size. Mild concentric left ventricular hypertrophy. No regional wall motion abnormalities are present. RIGHT VENTRICLE Normal right ventricular size and systolic function. LEFT ATRIUM The left atrial size is normal. RIGHT ATRIUM The right atrial size is normal. ATRIAL SEPTUM Normal atrial septal thickness without atrial level shunting by limited color doppler interrogation. AORTA The aortic root and proximal ascending aorta are normal in size on limited imaging. MITRAL VALVE Structurally normal mitral valve. No mitral valve stenosis or regurgitation. AORTIC VALVE Trileaflet aortic valve. No aortic valve stenosis or regurgitation. TRICUSPID VALVE Structurally normal tricuspid valve. There is trace tricuspid valve regurgitation. The estimated pulmonary arterial pressure is 37.5 mmHg. PULMONARY VALVE No pulmonary valve regurgitation or stenosis. VESSELS The inferior vena cava is dilated. PERICARDIUM No pericardial effusion. Reina Lobo MD, FACC (Electronically Signed) Final Date:03 October 2017 19:31
== END 2017-10-03 11:25 | disposition home health service (06) | DRG 603 ==
LOC: PHED 20:18 → PHEDA 23:13 → PH3B 09-30 00:13
PROVIDERS: ADMIT Hospitalist; ATTEND Hospitalist
DX: L03.115 Cellulitis of right lower limb (principal); E11.22 Type 2 diabetes mellitus with diabetic chronic kidney disease; E11.622 Type 2 diabetes mellitus with other skin ulcer; L97.309 Non-pressure chronic ulcer of unspecified ankle with unspecified severity; J98.11 Atelectasis; I12.9 Hypertensive chronic kidney disease with stage 1 through stage 4 chronic kidney disease, or unspecified chronic kidney disease; N18.9 Chronic kidney disease, unspecified; E78.5 Hyperlipidemia, unspecified; K21.9 Gastro-esophageal reflux disease without esophagitis; E78.00 Pure hypercholesterolemia, unspecified; R05 Cough; I25.2 Old myocardial infarction; G47.30 Sleep apnea, unspecified; R60.0 Localized edema; M19.90 Unspecified osteoarthritis, unspecified site; F41.9 Anxiety disorder, unspecified; B96.5 Pseudomonas (aeruginosa) (mallei) (pseudomallei) as the cause of diseases classified elsewhere; Z79.01 Long term (current) use of anticoagulants; Z79.4 Long term (current) use of insulin; Z82.49 Family history of ischemic heart disease and other diseases of the circulatory system; Z83.3 Family history of diabetes mellitus; Z86.73 Personal history of transient ischemic attack (TIA), and cerebral infarction without residual deficits; Z88.0 Allergy status to penicillin; Z89.512 Acquired absence of left leg below knee; Z91.14 Patient's other noncompliance with medication regimen
CPT/HCPCS: 71046; 80048; 80053; 82948; 85025; 85610; 85730; 86403; 87040; 87070; 87077; 87186; 87205; 87804; 93306; 96365; 96375; J0692; J1815; J1940; J2270; J2405; J3370; J7030; J7040; J7050